=== PATIENT | male | born 1950 | race Caucasian/White ===

== ENCOUNTER 2017-11-22 11:14 | Emergency (ER) | payer MEDICARE ==
[~2017-11-22] VITALS: Ht 170.2 cm; Wt 89.8 kg
[~2017-11-22 11:14] MED LIST: ACET325 PO; ALBU3IS INH; ALBU90OI INH; AMLO10 PO; ASPI325 PO; ATOR10 PO; BENZ100A PO; CARV25 PO; CHLO25B PO; CYAN1000 PO; Colace100 MG PO; DEXT40GEL PO; EPIN.3I IM; FISH1000 PO; FURO40 PO; HYDACE10B PO; HYDACE5 PO; INS70/30PN; INSULANPEN; LEVEMIR FL100 UNIT/1 SC; LEVFLO500 PO; LIDO5TP TOP; METO25ER PO; Micro-K10 MEQ PO; Nitroglycerin0.4 MG SL; Novolog Fl100 UNIT/1 SC; OFLO.3OPSO OP; PREG100 PO; PYRI100 PO; REFRESH OPTIVE10 ML BOTHEYES; RXHYDACE PO; RXOXYACE PO; STRIVERDI RESPIM4 GM INH; THIA100 PO; Ventolin Soln3 ML INH
== END 2017-11-22 13:41 | disposition home or self-care (01) ==
LOC: ER 11:14
DX: T82.838A Hemorrhage due to vascular prosthetic devices, implants and grafts, initial encounter (principal); I10 Essential (primary) hypertension; Z88.2 Allergy status to sulfonamides; Z91.030 Bee allergy status; Z79.82 Long term (current) use of aspirin; Z79.2 Long term (current) use of antibiotics; Z79.899 Other long term (current) drug therapy; Z95.5 Presence of coronary angioplasty implant and graft; Z87.891 Personal history of nicotine dependence; Z98.890 Other specified postprocedural states; Z90.49 Acquired absence of other specified parts of digestive tract; Z79.4 Long term (current) use of insulin

== ENCOUNTER 2017-12-27 16:53 | Inpatient (IN) | payer OTHER, MEDICARE ==
[~2017-12-27] VITALS: Ht 170.2 cm; Wt 83.1 kg
[2017-12-27] MEDS ORDERED: BACL10 PO (17:06)
[2017-12-27] MEDS ORDERED: BUME2 PO (17:07)
[2017-12-27] MEDS ORDERED: Prozac20 MG PO (17:08)
[2017-12-27] MEDS ORDERED: HYDCOR2.5C TOP (17:10)
[2017-12-27] MEDS ORDERED: MIDO5 PO (17:14)
[2017-12-27] MEDS ORDERED: ONDA4ODT MM (17:15)
[2017-12-27] MEDS ORDERED: SENN187 PO (17:17)
[2017-12-27] MEDS ORDERED: SALS750 PO (17:17)
[2017-12-27 18:23] LABS: BASOPHILS ABSOLUTE AUTO 0.09 K/mm3 (0.00-0.23); BASOPHILS PERCENT AUTO 1 % (0-2); EOSINOPHILS PERCENT AUTO 2 % (0-6); Hematocrit 35.3 % (37.0-53.0); Hemoglobin 10.9 g/dL (13.5-17.5); IMMATURE GRAN ABSOLUTE AUTO 0.08 K/mm3 (0.00-0.10); IMMATURE GRAN PERCENT AUTO 1 % (0-1); LYMPHOCYTES ABSOLUTE AUTO 2.09 K/mm3 (0.84-5.20); LYMPHOCYTES PERCENT AUTO 21 % (21-46); MONOCYTES ABSOLUTE AUTO 0.92 K/mm3 (0.16-1.47); MONOCYTES PERCENT AUTO 9 % (4-13); Mean Corpuscular HGB 26.5 pg (26.0-34.0); Mean Corpuscular HGB Conc 30.9 g/dL (31.5-36.5); Mean Corpuscular Volume 86 fL (80-100); Mean Platelet Volume 9.8 fL (9.1-12.4); NEUTROPHILS ABSOLUTE AUTO 6.53 K/mm3 (1.96-9.15); NEUTROPHILS PERCENT AUTO 66 % (41-73); Platelet Count 401 K/mm3 (150-400); RDW Coefficient Variation 16.5 % (11.7-14.2); RDW Standard Deviation 51.2 fL (35.1-46.3); Red Blood Cell Count 4.11 M/mm3 (4.30-5.90); White Blood Cell Count 9.91 K/mm3 (4.00-11.30)
[2017-12-27 18:45] LABS: Albumin/Globulin Ratio 0.6 (0.8-1.8); Bilirubin, Total 0.6 mg/dL (0.1-1.0); Bun/Creatinine Ratio 4.8 (12.0-20.0); Creatinine, Blood 2.94 mg/dL (0.60-1.20); Globulin, Blood 4.9 g/dL (2.2-4.0); Potassium, Blood 3.2 mmol/L (3.5-5.5); Total Protein, Blood 7.9 g/dL (6.4-8.2); Troponin I 0.035 ng/mL (0.000-0.040)
[2017-12-27 18:49] LABS: Source, Urine Clean Catch
[2017-12-27 18:53] LABS: Bilirubin, Urine Neg (Neg); Blood, Urine 3+ (Neg); Glucose Qualitative, Urine 2+ (Neg); Ketones, Urine Neg (Neg); Leukocyte Esterase, Urine Neg (Neg); Nitrite, Urine Neg (Neg); Protein, Urine 3+ (Neg); Urobilinogen, Urine NORM (Normal)
[2017-12-27 18:56] LABS: Appearance, Urine Clear (Clear); Color, Urine Yellow (P-Yellow)
[2017-12-27 18:58] LABS: Bacteria Rare /hpf; Mucus Light ([, 0-Heavy]); Squamous Epithelial Cells Few /hpf (Few); White Blood Cells, Urine Not Seen /hpf (0-5)
[2017-12-27] MEDS ORDERED: Ocuflox5 ML OP (23:30)
[2017-12-28 02:46] LABS: Troponin I 0.031 ng/mL (0.000-0.040)
[2017-12-28 06:52] LABS: Hematocrit 33.5 % (37.0-53.0); Hemoglobin 10.4 g/dL (13.5-17.5); Mean Corpuscular Volume 87 fL (80-100); Mean Platelet Volume 9.6 fL (9.1-12.4); Platelet Count 364 K/mm3 (150-400); RDW Coefficient Variation 16.6 % (11.7-14.2); RDW Standard Deviation 52.2 fL (35.1-46.3); Red Blood Cell Count 3.85 M/mm3 (4.30-5.90)
[2017-12-28 07:01] LABS: Potassium, Blood 3.1 mmol/L (3.5-5.5)
[2017-12-28 07:09] LABS: Troponin I 0.028 ng/mL (0.000-0.040)
[2017-12-28 07:46] LABS: Albumin, Blood 2.7 g/dL (3.4-5.0); Albumin/Globulin Ratio 0.6 (0.8-1.8); Bilirubin, Total 0.4 mg/dL (0.1-1.0); Bun/Creatinine Ratio 5.6 (12.0-20.0); Calcium, Blood 8.8 mg/dL (8.5-10.1); Creatinine, Blood 4.11 mg/dL (0.60-1.20); Globulin, Blood 4.4 g/dL (2.2-4.0); Potassium, Blood 3.1 mmol/L (3.5-5.5); Total Protein, Blood 7.1 g/dL (6.4-8.2)
[2017-12-28 18:57] LABS: U Amphetamine Screen Not Detected; U Barbituate Screen Not Detected; U Benzodiazapine Screen Not Detected; U Buprenorphine Screen Not Detected; U Cannabinoids Screen DETECTED; U Cocaine Screen Not Detected; U Methadone Screen Not Detected; U Methamphetamine Screen Not Detected; U Opiates Screen DETECTED; U Oxycodone Screen Not Detected; U Phencyclidine Screen Not Detected; U Propoxyphene Screen Not Detected
[2017-12-29 04:54] LABS: BASOPHILS ABSOLUTE AUTO 0.08 K/mm3 (0.00-0.23); BASOPHILS PERCENT AUTO 1 % (0-2); EOSINOPHILS ABSOLUTE AUTO 0.24 K/mm3 (0.00-0.68); EOSINOPHILS PERCENT AUTO 3 % (0-6); Hematocrit 36.2 % (37.0-53.0); Hemoglobin 11.2 g/dL (13.5-17.5); IMMATURE GRAN ABSOLUTE AUTO 0.05 K/mm3 (0.00-0.10); IMMATURE GRAN PERCENT AUTO 1 % (0-1); LYMPHOCYTES ABSOLUTE AUTO 2.05 K/mm3 (0.84-5.20); LYMPHOCYTES PERCENT AUTO 26 % (21-46); MONOCYTES ABSOLUTE AUTO 1.02 K/mm3 (0.16-1.47); MONOCYTES PERCENT AUTO 13 % (4-13); Mean Corpuscular HGB 26.7 pg (26.0-34.0); Mean Corpuscular HGB Conc 30.9 g/dL (31.5-36.5); Mean Corpuscular Volume 86 fL (80-100); Mean Platelet Volume 10.1 fL (9.1-12.4); NEUTROPHILS PERCENT AUTO 56 % (41-73); Platelet Count 403 K/mm3 (150-400); RDW Coefficient Variation 16.7 % (11.7-14.2); RDW Standard Deviation 52.7 fL (35.1-46.3); White Blood Cell Count 7.84 K/mm3 (4.00-11.30)
[2017-12-29 05:15] LABS: Magnesium, Blood 2.1 mg/dL (1.6-2.4)
[2017-12-29 05:16] LABS: Albumin, Blood 2.9 g/dL (3.4-5.0); Anion Gap 10 mmol/L (6-16); Blood Urea Nitrogen 23 mg/dL (8-24); Bun/Creatinine Ratio 5.6 (12.0-20.0); CO2, Blood 32 mmol/L (21-32); Calcium, Blood 8.7 mg/dL (8.5-10.1); Chloride, Blood 97 mmol/L (98-108); Creatinine, Blood 4.09 mg/dL (0.60-1.20); Glomerular Filtration Rate 16 (60-); Glucose, Blood 132 mg/dL (70-99); Phosphorus, Blood 4.4 mg/dL (2.5-4.9); Sodium, Blood 139 mmol/L (136-145)
[2017-12-30 04:44] LABS: BASOPHILS ABSOLUTE AUTO 0.11 K/mm3 (0.00-0.23); BASOPHILS PERCENT AUTO 1 % (0-2); EOSINOPHILS ABSOLUTE AUTO 0.32 K/mm3 (0.00-0.68); EOSINOPHILS PERCENT AUTO 4 % (0-6); Hematocrit 37.1 % (37.0-53.0); Hemoglobin 11.3 g/dL (13.5-17.5); IMMATURE GRAN ABSOLUTE AUTO 0.05 K/mm3 (0.00-0.10); IMMATURE GRAN PERCENT AUTO 1 % (0-1); LYMPHOCYTES ABSOLUTE AUTO 1.62 K/mm3 (0.84-5.20); LYMPHOCYTES PERCENT AUTO 19 % (21-46); MONOCYTES ABSOLUTE AUTO 1.15 K/mm3 (0.16-1.47); MONOCYTES PERCENT AUTO 14 % (4-13); Mean Corpuscular HGB 26.7 pg (26.0-34.0); Mean Corpuscular HGB Conc 30.5 g/dL (31.5-36.5); Mean Corpuscular Volume 88 fL (80-100); Mean Platelet Volume 9.9 fL (9.1-12.4); NEUTROPHILS ABSOLUTE AUTO 5.25 K/mm3 (1.96-9.15); NEUTROPHILS PERCENT AUTO 62 % (41-73); Platelet Count 402 K/mm3 (150-400); RDW Coefficient Variation 16.3 % (11.7-14.2); RDW Standard Deviation 52.3 fL (35.1-46.3); Red Blood Cell Count 4.24 M/mm3 (4.30-5.90)
[2017-12-30 05:03] LABS: Anion Gap 10 mmol/L (6-16); Blood Urea Nitrogen 40 mg/dL (8-24); Bun/Creatinine Ratio 7.8 (12.0-20.0); CO2, Blood 31 mmol/L (21-32); Calcium, Blood 9.1 mg/dL (8.5-10.1); Chloride, Blood 98 mmol/L (98-108); Creatinine, Blood 5.15 mg/dL (0.60-1.20); Glomerular Filtration Rate 12 (60-); Glucose, Blood 120 mg/dL (70-99); Magnesium, Blood 2.1 mg/dL (1.6-2.4); Phosphorus, Blood 4.6 mg/dL (2.5-4.9); Sodium, Blood 139 mmol/L (136-145)
[2017-12-31 04:21] LABS: Hematocrit 35.1 % (37.0-53.0); Hemoglobin 10.8 g/dL (13.5-17.5)
[2017-12-31 04:39] LABS: Anion Gap 8 mmol/L (6-16); Blood Urea Nitrogen 35 mg/dL (8-24); Bun/Creatinine Ratio 7.5 (12.0-20.0); CO2, Blood 31 mmol/L (21-32); Chloride, Blood 101 mmol/L (98-108); Creatinine, Blood 4.68 mg/dL (0.60-1.20); Glomerular Filtration Rate 13 (60-); Glucose, Blood 95 mg/dL (70-99); Sodium, Blood 140 mmol/L (136-145)
[2017-12-31] MEDS ORDERED: INSDET100 SC (14:29)
[2017-12-31] MEDS ORDERED: PROM25 PO (14:34)
[2017-12-31] MEDS ORDERED: Kaon-Cl40 MEQ/15 PO (14:38)
[2017-12-31] MEDS ORDERED: CEPH500 PO (14:39)
== END 2017-12-31 15:24 | disposition home or self-care (01) | DRG 91 ==
LOC: ER 16:53 → MEDS 16:54 → ENPENDDIS 12-31 12:00 → MEDS 12-31 15:24
PROVIDERS: Emergency Medicine; Family Medicine; Internal Medicine; Internal Medicine Nephrology
PROC: 5A1D70Z Performance of Urinary Filtration, Intermittent, Less than 6 Hours Per Day (ICD-10-PCS; principal; 2017-12-28)
PROC: 5A1D70Z Performance of Urinary Filtration, Intermittent, Less than 6 Hours Per Day (ICD-10-PCS; 2017-12-30)
DX: G92 Toxic encephalopathy (principal); N18.6 End stage renal disease; I96 Gangrene, not elsewhere classified; I12.0 Hypertensive chronic kidney disease with stage 5 chronic kidney disease or end stage renal disease; G45.9 Transient cerebral ischemic attack, unspecified; E11.621 Type 2 diabetes mellitus with foot ulcer; L89.629 Pressure ulcer of left heel, unspecified stage; L89.610 Pressure ulcer of right heel, unstageable; E11.22 Type 2 diabetes mellitus with diabetic chronic kidney disease; R07.9 Chest pain, unspecified; E86.0 Dehydration; E87.6 Hypokalemia; T42.8X5A Adverse effect of antiparkinsonism drugs and other central muscle-tone depressants, initial encounter; H02.401 Unspecified ptosis of right eyelid; D63.1 Anemia in chronic kidney disease; Z99.2 Dependence on renal dialysis; Z87.891 Personal history of nicotine dependence; Z79.899 Other long term (current) drug therapy; Z79.4 Long term (current) use of insulin; Z88.2 Allergy status to sulfonamides; Z88.8 Allergy status to other drugs, medicaments and biological substances; Z91.030 Bee allergy status; Z95.5 Presence of coronary angioplasty implant and graft; Z90.49 Acquired absence of other specified parts of digestive tract; Z86.718 Personal history of other venous thrombosis and embolism; Z87.81 Personal history of (healed) traumatic fracture
CPT/HCPCS: 36415; 70450; 71046; 78452; 80053; 80069; 81001; 82140; 82550; 82947; 83735; 83880; 84132; 84443; 84484; 85014; 85018; 85025; 85027; 93005; 93010; 93017; 94640; 94660; 94762; 97162; 97165; 97530; 99285-25; A9500; G0257; G8978; G8979; G8980; G8987; G8988; J1250; J1650; J1815; J2405; J2550; J3010; J3480; J7030

== ENCOUNTER 2018-08-18 19:06 | Inpatient (IN) | payer MEDICARE ==
[~2018-08-18] VITALS: Ht 170.2 cm; Wt 88.0 kg
[~2018-08-18 19:06] MED LIST changes: +ATOR40TA PO; +BACL10 PO; +BUME2 PO; +CEPH500 PO; +CLOP75 PO; +ELIQUIS2.5 MG PO; +FISH OIL + D31 EACH PO; -FISH1000 PO; +FLUO10 PO; -HYDACE10B PO; +HYDCOR2.5C TOP; +INSDET100 SC; +Kaon-Cl40 MEQ/15 PO; +MIDO5 PO; +Norco 10-325 T1 EACH PO; +ONDA4ODT MM; +Ocuflox5 ML OP; +PREG75 PO; +PROM25 PO; +Polyethylene G500 G4; +Prozac20 MG PO; +Renal Caps Softg1 MG PO; +SALS750 PO; +SENN187 PO; +VANCOMYCIN1 GM/1001 IV
[2018-08-18 20:25] LABS: BASOPHILS ABSOLUTE AUTO 0.05 K/mm3 (0.00-0.23); BASOPHILS PERCENT AUTO 0 % (0-2); EOSINOPHILS ABSOLUTE AUTO 0.03 K/mm3 (0.00-0.68); EOSINOPHILS PERCENT AUTO 0 % (0-6); Hematocrit 26.2 % (37.0-53.0); Hemoglobin 8.5 g/dL (13.5-17.5); IMMATURE GRAN ABSOLUTE AUTO 0.07 K/mm3 (0.00-0.10); IMMATURE GRAN PERCENT AUTO 1 % (0-1); LYMPHOCYTES ABSOLUTE AUTO 0.74 K/mm3 (0.84-5.20); LYMPHOCYTES PERCENT AUTO 6 % (21-46); MONOCYTES ABSOLUTE AUTO 1.22 K/mm3 (0.16-1.47); MONOCYTES PERCENT AUTO 10 % (4-13); Mean Corpuscular HGB 29.7 pg (26.0-34.0); Mean Corpuscular HGB Conc 32.4 g/dL (31.5-36.5); Mean Corpuscular Volume 92 fL (80-100); Mean Platelet Volume 10.6 fL (9.1-12.4); NEUTROPHILS ABSOLUTE AUTO 9.94 K/mm3 (1.96-9.15); NEUTROPHILS PERCENT AUTO 83 % (41-73); Platelet Count 231 K/mm3 (150-400); RDW Coefficient Variation 14.9 % (11.7-14.2); RDW Standard Deviation 50.4 fL (35.1-46.3); Red Blood Cell Count 2.86 M/mm3 (4.30-5.90); White Blood Cell Count 12.05 K/mm3 (4.00-11.30)
[2018-08-18 20:42] LABS: Influenza A Negative (NEGATIVE); Influenza B Negative (NEGATIVE)
[2018-08-18 21:53] LABS: Albumin, Blood 2.7 g/dL (3.4-5.0); Albumin/Globulin Ratio 0.6 (0.8-1.8); Bilirubin, Total 0.5 mg/dL (0.1-1.0); Bun/Creatinine Ratio 8.2 (12.0-20.0); Calcium, Blood 7.6 mg/dL (8.5-10.1); Creatinine, Blood 7.2 mg/dL (0.60-1.20); Globulin, Blood 4.7 g/dL (2.2-4.0); Potassium, Blood 4.4 mmol/L (3.5-5.5); Total Protein, Blood 7.4 g/dL (6.4-8.2); Troponin I 0.062 ng/mL (0.000-0.040)
[2018-08-18 23:28] LABS: Magnesium, Blood 2.2 mg/dL (1.6-2.4)
[2018-08-19 00:07] LABS: International Normalized Ratio 1.19; Prothrombin Time Results 12.4 Sec (9.7-11.5)
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
[2018-08-19 03:40] LABS: Hematocrit 25.3 % (37.0-53.0); Hemoglobin 7.9 g/dL (13.5-17.5); Mean Corpuscular HGB 29.2 pg (26.0-34.0); Mean Corpuscular HGB Conc 31.2 g/dL (31.5-36.5); Mean Corpuscular Volume 93 fL (80-100); Mean Platelet Volume 10.4 fL (9.1-12.4); Platelet Count 195 K/mm3 (150-400); RDW Coefficient Variation 14.8 % (11.7-14.2); RDW Standard Deviation 50.7 fL (35.1-46.3); Red Blood Cell Count 2.71 M/mm3 (4.30-5.90); White Blood Cell Count 10.76 K/mm3 (4.00-11.30)
[2018-08-19 03:55] LABS: International Normalized Ratio 1.36
[2018-08-19 03:56] LABS: Bun/Creatinine Ratio 7.9 (12.0-20.0); Calcium, Blood 7.9 mg/dL (8.5-10.1); Creatinine, Blood 7.72 mg/dL (0.60-1.20); Magnesium, Blood 2.4 mg/dL (1.6-2.4); Potassium, Blood 4.2 mmol/L (3.5-5.5)
--- NOTE | 2018-08-19 05:33 | NUR ---
SHIFT SUMMARY. PT HAS COMPLAINED OF 8/10 CHEST PAIN SINCE ADMIT, PT HAS BEEN MEDICATED FOR PAIN PER EMAR WITH MINIMAL RESULTS, PT HAS BEEN DIAPHORETIC OFF AND ON SINCE ADMIT WELL. PT STILL COMPLAINS OF 8/10 PAIN WITH BREATHING, PT HAS BEEN USING O2 AT 2 L PRN FOR COMFORT. PT'S O2 STATS WILL OCC DROP DOWN TO THE LOW 80'S BUT WILL QUICKLY RECOVER. PT COMPLAINED OF NAUSEA AND WAS MEDICATED PER EMAR W/GOOD RESULTS. PT HAS BEEN NPO SINCE MIDNIGHT, CARDIOLOGY CONSULT WAS CALLED INTO ANSWERING SERVICE. PT'S TROPONINS ARE CRITICAL HIGH (SEE LABS.) AM EKG OBTAINED PER ORDERS. NO ACUTE EVENTS ON TELE, ST ELEVATION STILL NOTED. PT'S HOME CPAP IS IN THE ROOM, RT SET UP. IS AT THE BEDSIDE, CALL LIGHT IN REACH, BED IS LOCKED AND LOW WILL CONTINUE TO MONITOR UNTIL REPORT IS GIVEN TO ONCOMING RN.
[2018-08-19 08:59] LABS: Source, Urine Clean Catch
[2018-08-19 09:07] LABS: Blood, Urine 2+ (Neg); Glucose Qualitative, Urine Neg (Neg); Ketones, Urine 1+ (Neg); Leukocyte Esterase, Urine 1+ (Neg); Nitrite, Urine Neg (Neg); Protein, Urine 4+ (Neg); Urobilinogen, Urine 1+ (Normal)
[2018-08-19 09:16] LABS: Appearance, Urine Hazy (Clear); Color, Urine Yellow (P-Yellow)
[2018-08-19 09:17] LABS: Bilirubin, Urine 1+ (Neg)
[2018-08-19 09:19] LABS: Squamous Epithelial Cells Few /hpf (Few); White Blood Cells, Urine 0-2 /hpf (0-5)
[2018-08-19 09:20] LABS: Amorphous Light (0-Heavy); Bacteria Few /hpf; Transitional Epithelial Cells Few /hpf (0-Rare)
[2018-08-19 09:24] LABS: Waxy Cast Rare /lpf (0)
--- NOTE | 2018-08-19 11:19 | NUR ---
Spiritual care visit conducted. Patient was lying in bed and receiving blood when I entered patient's room. I introduced myself and patient invited me to sit down. Therapeutic alliance was easily established and patient shared openly about his struggles with guilt, his many trials in life and his family unit complications. I listened empathically, listened to confession, provided pastoral careers counsellor, quoted inspirational Bible verses and provided prayer. Patient responded well to all interventions and displayed evidence of restored maunel and catharsis. Patient expressed gatitiude for the visit.
[2018-08-19 14:00] LABS: PCO2 Arterial 61.5 mmHg (35-45); PO2 Arterial 51.1 mmHg (80-100)
[2018-08-19 14:04] LABS: pH Blood Arterial 7.26 (7.35-7.45)
--- NOTE | 2018-08-19 14:51 | NUR ---
TETRYL WRINGER OPERATOR CALLED TO PATIENT ROOM. PT IS DIAPHORETIC AND CONFUSED. BP IS ELEVATED AT 190 SYSTOLIC OVER 93. PT STATES "I CAN'T BREATHE" IS NOTIFIED. STAT EKG ATTEMPTED. UNSUCCESSFULL PT TOO DIAPHORETIC AT THIS TIME FOR PADS TO STICK. ATTEMPT TO CALL . DIANDRA JIM RN WILL CALL AND SEE IF SHE CAN REACH MD. TO ROOM. ORDER FOR STAT LABS STAT ABG AND STAT CHEST XRAY. PT ORIENTED TO SELF ONLY AT THIS TIME. IS NOTIFIED AND ORDER TO DO REPEAT DIALYSIS TO TRY AND PULL FLUID FROM LUNGS OFF FOR PATIENT COMFORT. CONDOM CATHETER PLACED AND THEN IV LASIX ADMIN PER ORDER. SPOUSE COMES TO ROOM AND IS EDUCATED ON PATIENTS CONDITION AND PLAN OF CARE. ASKS THAT PT GO TO ICU. HAS DIALYSIS DONE ON PATIENT FIRST AND THEN SHE WILL LET THIS RN KNOW IF PT IS TO GO TO ICU.
--- NOTE | 2018-08-19 15:41 | NUR ---
I responded to a call from patient's nurse for assistance with patient's . She had elevated emotions to the point that she was hindering patient care. When I entered the room patient was very excited and was speaking in loud tones to the patient and the staff. I asked patient's , Jolene to step out of the room and go for a little walk with me. Jolene proceeded to tell me about the patient's health history, about some of the family unit complications and about her frustrations with most every hospital the patient has been admitted to. Jolene stated that the patient is her whole world and that she can over reacted when it comes to advocating for his care. I listened empathically, provided anxiety containment, encouraged Jolene to be a part of the positive care in the patient's life, reinforced helpful attitudes and conducted a brief life review. oJlene responded well to the interventions and displayed evidence of a more peaceful demeanor.
--- NOTE | 2018-08-19 17:11 | NUR ---
DIALYSIS PT HAS A 2.5 HR DIALYSIS TX DONE, ABOUT AN HOUR LATER A RAPID RESPONSE WAS CALLEDON THE PT. HE WAS CYANOTIC, SOB AND DIAPHORATIC I WAS CALLED BACK TO DO A PUF ON THE PT. DR SARGENT WANTED ME TO GET MUCH FLUID OFF I COULD. BUT HE BEGAN TO CRAMP IN BOTH HIS LEGS AND HIS HANDS. I WAS UNABLE TO CONTINUE. I GOT 3449 ML OFF THE PT. HE WAS ABLE TO LOWER THE HOB AND REST COMFORTABLE. HE STILL HAS A BI PAP ON.
--- NOTE | 2018-08-19 18:01 | NUR ---
PT TRANSFERRED TO ICU 15. ON BIPAP AT 16/8. DENIES CHEST PAIN, BUT INCREASE IN ST ELEVATION NOTED ON STRIPS, 2 SMALL BLOCKS HIGH. DISCUSSED WITH COURT OFFICER AND CALLED DR SARGENT, ASKED IF EKG SHOULD BE DONE DUE TO CHANGES AFTER DIALYSIS. DR SARGENT STATES NO EKG AT THIS TIME UNLESS SIGNIFICANT CHANGES IN PT'S PRESENTATION. COURT OFFICER AWARE. FAMILY AT BEDSIDE AND INFORMED OF PLAN TO IMPROVE RESPIRATORY STATUS SO THAT ANGIO CAN BE DONE IN AM. PT REQUESTED MASK SWITCHED TO HIS HOME MASK BUT RT DOES NOT THINK THIS CAN BE DONE DUE TO TUBING MATCH UPS. LUNG SOUNDS WITH CRACKLES NOTED IN BASES. HEPARIN DRIP RUNNING, CONFIRMED WITH ROCIO MORENO. NO NEEDS AT THIS TIME
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
[2018-08-19 21:30] LABS: Adenovirus Not Detected (NOT DETECT); Bordetella pertussis Not Detected (NOT DETECT); Chlamydophila pneumoniae Not Detected (NOT DETECT); Coronavirus 229E Not Detected (NOT DETECT); Coronavirus HKU1 Not Detected (NOT DETECT); Coronavirus NL63 Not Detected (NOT DETECT); Coronavirus OC43 Not Detected (NOT DETECT); Human Metapneumovirus Not Detected (NOT DETECT); Human Rhinovirus/Enterovirus Not Detected (NOT DETECT); Influenza A Not Detected (NOT DETECT); Influenza A/2009-H1 Not Detected (NOT DETECT); Influenza A/H1 Not Detected (NOT DETECT); Influenza A/H3 Not Detected (NOT DETECT); Influenza B Not Detected (NOT DETECT); Mycoplasma pneumoniae Not Detected (NOT DETECT); Parainfluenza Virus 1 Not Detected (NOT DETECT); Parainfluenza Virus 2 Not Detected (NOT DETECT); Parainfluenza Virus 3 Not Detected (NOT DETECT); Parainfluenza Virus 4 Not Detected (NOT DETECT); Respiratory Syncytial Virus Not Detected (NOT DETECT)
[2018-08-20 03:45] LABS: BASOPHILS ABSOLUTE AUTO 0.01 K/mm3 (0.00-0.23); BASOPHILS PERCENT AUTO 0 % (0-2); EOSINOPHILS PERCENT AUTO 0 % (0-6); Hematocrit 32.3 % (37.0-53.0); Hemoglobin 10.5 g/dL (13.5-17.5); IMMATURE GRAN ABSOLUTE AUTO 0.05 K/mm3 (0.00-0.10); IMMATURE GRAN PERCENT AUTO 1 % (0-1); LYMPHOCYTES ABSOLUTE AUTO 0.55 K/mm3 (0.84-5.20); LYMPHOCYTES PERCENT AUTO 6 % (21-46); MONOCYTES ABSOLUTE AUTO 0.21 K/mm3 (0.16-1.47); MONOCYTES PERCENT AUTO 2 % (4-13); Mean Corpuscular HGB 28.5 pg (26.0-34.0); Mean Corpuscular HGB Conc 32.5 g/dL (31.5-36.5); Mean Platelet Volume 10.6 fL (9.1-12.4); NEUTROPHILS ABSOLUTE AUTO 7.97 K/mm3 (1.96-9.15); NEUTROPHILS PERCENT AUTO 91 % (41-73); Platelet Count 244 K/mm3 (150-400); RDW Coefficient Variation 15.1 % (11.7-14.2); Red Blood Cell Count 3.68 M/mm3 (4.30-5.90); White Blood Cell Count 8.79 K/mm3 (4.00-11.30)
[2018-08-20 03:56] LABS: Mean Corpuscular Volume 88 fL (80-100)
[2018-08-20 04:06] LABS: Alanine Aminotransfer (ALT/SGP 126 U/L (12-78); Albumin, Blood 3.3 g/dL (3.4-5.0); Albumin/Globulin Ratio 0.6 (0.8-1.8); Alk Phos 100 U/L (50-136); Anion Gap 16 mmol/L (6-16); Aspartate Aminotrans (AST/SGOT 84 U/L (12-37); Bilirubin, Total 0.7 mg/dL (0.1-1.0); Blood Urea Nitrogen 61 mg/dL (8-24); Bun/Creatinine Ratio 8.8 (12.0-20.0); CO2, Blood 23 mmol/L (21-32); Calcium, Blood 8.7 mg/dL (8.5-10.1); Chloride, Blood 92 mmol/L (98-108); Creatinine, Blood 6.91 mg/dL (0.60-1.20); Globulin, Blood 5.2 g/dL (2.2-4.0); Glomerular Filtration Rate 9 (60-); Glucose, Blood 226 mg/dL (70-99); Magnesium, Blood 2.5 mg/dL (1.6-2.4); Potassium, Blood 4.6 mmol/L (3.5-5.5); Sodium, Blood 131 mmol/L (136-145); Total Protein, Blood 8.5 g/dL (6.4-8.2)
[2018-08-20 04:39] LABS: Phosphorus, Blood 7.5 mg/dL (2.5-4.9)
[2018-08-20 04:53] LABS: PCO2 Arterial 39.3 mmHg (35-45); PO2 Arterial 104 mmHg (80-100); pH Blood Arterial 7.38 (7.35-7.45)
--- NOTE | 2018-08-20 05:53 | NUR ---
SHIFT SUMMARY NO ACUTE CHANGES THIS SHIFT. PT HAS REMAINED ON BIPAP THROUGHOUT THE NIGHT. BIPAP SETTINGS 12/6, FIO2 35%. PT HAS SLEPT OFF AND ON. PT HAS DENIED CHEST PAIN, NAUSEA, OR SOB AFTER MEDICATION FOR PAIN AT THE BEGINNING OF THE NIGHT. VITAL SIGNS REMAIN STABLE. HR REMAINS 60'S WITH ST ELEVATION UNCHANGED THROUGHOUT THE SHIFT. HEPARIN GTT INFUSING AT 17 UNITS/KG/HR PER PHARMACY DOSING. PT HAS REPOSITIONED SELF FOR COMFORT. DIALYSIS CATH REMAINS C/D/I. WILL CONTINUE TO MONITOR AND REPORT OFF TO ONCOMING RN.
--- NOTE | 2018-08-20 07:25 | NUR ---
PT AWAKE AND ALERT. PT TOLERATING BIPAP WELL. DENIES C/O CHEST PAIN OR PRESSURE. DENIES SOB WHILE ON BIPAP.
--- NOTE | 2018-08-20 08:37 | NUR ---
DR SARGENT AT BEDSIDE TO CONSENT FOR ANGIOGRAM. PT REMOVED FROM BIPAP TO TAKE PO MEDS AND PLACED ON 6L 02 VIA N/C. STATS DROPPED TO 88% WITHIN 5MIN W AN INCREASE IN RESP EFFORT. BIPAP REPLACED. PT C/O INDIGESTION IN UPPER THROAT, DECRIBES BURNING. C/O SHARP PAIN TO LOWER LUNG AREA W DEEP BREATH, POSSIBLE PLEURAL PAIN. HEART CENTER STAFF AT BEDSIDE TO TAKE PT FOR HIS ANGIOGRAM
--- NOTE | 2018-08-20 08:49 | NUR ---
Spiritual care visit conducted. I provided pre-surgery prayer for patient and spouse.
--- NOTE | 2018-08-20 10:45 | NUR ---
PT ARRIVED FROM 944 FROM DRIVABILITY TECHNICIAN. PT WILL NEED A CABG PER DR SARGENT. PT CAME BACK OFF OF HEP GTT AND WILL REMAIN OFF OF HEPARIN PER DR SARGENT. HEART CENTER STAFF MEMBER CAME AND PULLED SHEATH; HELD MANUAL PRESSURE X 20MIN; HEMOSTASIS ACHIEVED. DR SARGENT WORKING ON POSSIBLE TRANSFER TO [facility]
--- NOTE | 2018-08-20 15:03 | NUR ---
PT AWAITING FOR BED TO BECOME AVAILABLE AT [facility]. DR ELAINE AND DR MCKEON UPDATED. PT RECEIVING HD NOW. BIPAP REMOVED, PT SATS >90% ON 6L VIA N/C
--- NOTE | 2018-08-20 16:40 | NUR ---
PT HAS BEEN TOLERATING BREAKS OFF BIPAP FOR LONGER PERIODS OF TIME THE DAY HAS PROGRESSED. PT OFF BIPAP FOR 45MIN DURING HD.
--- NOTE | 2018-08-20 19:45 | NUR ---
ASSUMED CARE BEDSIDE REPORT RECIEVED. PT IS RESTING IN BED WITH BIPAP ON 04/03, FIO2 35%. PT IS AWAKE, ALERT, AND ORIENTED. PT COMPLAINS OF BACK PAIN AT THIS TIME. VITAL SIGNS STABLE, ST ELEVATION NOTED. PT WITH RIGHT GROIN ACCESS SITE, SITE STABLE. IV'S SALINE LOCKED. DIALYSIS CATH NOTED TO RIGHT UPPER CHEST WITH CAPS INTACT. FISTULA TO LFA. FAMILY PRESENT AT BEDSIDE. WILL CONTINUE TO MONITOR.
[2018-08-21 03:50] LABS: BASOPHILS ABSOLUTE AUTO 0.01 K/mm3 (0.00-0.23); BASOPHILS PERCENT AUTO 0 % (0-2); EOSINOPHILS PERCENT AUTO 0 % (0-6); Hematocrit 31.8 % (37.0-53.0); Hemoglobin 10.3 g/dL (13.5-17.5); IMMATURE GRAN ABSOLUTE AUTO 0.07 K/mm3 (0.00-0.10); IMMATURE GRAN PERCENT AUTO 1 % (0-1); LYMPHOCYTES ABSOLUTE AUTO 0.65 K/mm3 (0.84-5.20); LYMPHOCYTES PERCENT AUTO 6 % (21-46); MONOCYTES ABSOLUTE AUTO 1.18 K/mm3 (0.16-1.47); MONOCYTES PERCENT AUTO 10 % (4-13); Mean Corpuscular HGB 28.9 pg (26.0-34.0); Mean Corpuscular HGB Conc 32.4 g/dL (31.5-36.5); Mean Corpuscular Volume 89 fL (80-100); Mean Platelet Volume 10.7 fL (9.1-12.4); NEUTROPHILS ABSOLUTE AUTO 9.75 K/mm3 (1.96-9.15); NEUTROPHILS PERCENT AUTO 84 % (41-73); Platelet Count 303 K/mm3 (150-400); RDW Coefficient Variation 14.9 % (11.7-14.2); RDW Standard Deviation 49.1 fL (35.1-46.3); Red Blood Cell Count 3.56 M/mm3 (4.30-5.90); White Blood Cell Count 11.66 K/mm3 (4.00-11.30)
[2018-08-21 04:15] LABS: Albumin, Blood 3.3 g/dL (3.4-5.0); Anion Gap 13 mmol/L (6-16); Blood Urea Nitrogen 71 mg/dL (8-24); Bun/Creatinine Ratio 10.3 (12.0-20.0); CO2, Blood 26 mmol/L (21-32); Calcium, Blood 8.3 mg/dL (8.5-10.1); Chloride, Blood 95 mmol/L (98-108); Creatinine, Blood 6.92 mg/dL (0.60-1.20); Glomerular Filtration Rate 8 (60-); Glucose, Blood 230 mg/dL (70-99); Magnesium, Blood 2.6 mg/dL (1.6-2.4); Phosphorus, Blood 6.4 mg/dL (2.5-4.9); Potassium, Blood 4.3 mmol/L (3.5-5.5); Sodium, Blood 134 mmol/L (136-145)
--- NOTE | 2018-08-21 05:50 | NUR ---
SHIFT SUMMARY NO ACUTE CHANGES THIS SHIFT. PT HAS REMAINED ON BIPAP THROUGHOUT MOST OF THE NIGHT WITH BREIF BREAKS. BIPAP 10/5, FIO2 35%. VITAL SIGNS HAVE REMAINED STABLE. WHEN OFF BIPAP PT ON 10L O2 NC. ST ELEVATION HAS DECREASED THIS MORNING. PT HAS DENIED PAIN AFTER MED WITH FENTANYL AT BEGINNING OF THE SHIFT. PT HAS REMAINED ALERT AND ORIENTED. FAMILY MEMBER HAS REMAINED AT BEDSIDE THROUGHOUT THE NIGHT. PT HAS REPOSITIONED SELF IN BED INDEPENDENTLY. RIGHT GROIN SITE REMAINS STABLE. WILL CONTINUE TO MONITOR AND REPORT OFF TO ONCOMING RN.
--- NOTE | 2018-08-21 08:00 | NUR ---
ASSUMED CARE ASSUMED CARE OF PT AT 0700. REPORT RECEIVED FROM TIFFANIE MILLER. PT AWAKE, ALERT AND ORIENTED. PT DENIES ANY CHEST PAIN, NAUSEA OR DYSPNEA AT THIS TIME. VITAL SIGNS STABLE. PT ON SUPPLEMENTAL O2 VIA HUMIDIFIED HI FLOW CANNULA AT 10L/MIN. PT HAS BIPAP AVAILABLE PRN. LUNG SOUNDS CLEAR T/O. PT HAS DIALYSIS FISTULA TO L ARM WHICH IS NOT FUNCTIONING. DIALYSIS CATHETER IN PLACE TO RIGHT UPPER CHEST - PLAN FOR DIALYSIS THIS MORNING PER DR. ALBA. PT HAS PIV X2 SALINE LOCKED. PT IS AWAITING BED AT [facility] FOR CABG AT THIS TIME. FAMILY MEMBERS AT BEDSIDE - DISCUSSED PLAN OF CARE. WILL CONTINUE TO MONITOR PT CLOSELY.
--- NOTE | 2018-08-21 10:25 | NUR ---
DR. ROSETTA SARGENT ROUNDED ON PT. PLAN TO CONTINUE NITRO PASTE AND INCREASE COREG DOSE. DR. SARGENT STATES PT CAN BE PCU STATUS IF OK WITH OTHER PHYSICIANS ON CASE. NO ADDITIONAL ORDERS RECEIVED AT THIS TIME.
--- NOTE | 2018-08-21 13:14 | NUR ---
Spiritual care visit conducted. Patient was lying in bed and alert with family bedside. Patient and family are known to me from prior visits. Patient and family got me caught up on patient's current health condition. I provided companionship and gave pastoral assistant corporation counsel. I also provided prayer. Patient and family responded well and expressed gratitude for my care and time.
--- NOTE | 2018-08-21 16:26 | NUR ---
[facility] TRANSFER BED ASSIGNMENT RECEIVED FOR [facility]. PT TO GO TO [address] ROOM 1. [facility] NOTIFIED - ETA 30 MINUTES. PT AND FAMILY UPDATED AND AWARE.
--- NOTE | 2018-08-21 17:35 | NUR ---
TRANSFER TRANSFER REPORT CALLED TO [facility] TIFFANIE ESCOBAR. PT HANDED OFF TO [facility] EMT. PT LEFT AT 1735 WITH [facility] VIA STRETCHER. EMMIE HERE DURING TRANSFER. PT'S HOME CPAP AND BELONGINGS WITH PT.
== END 2018-08-21 17:35 | disposition short-term general hospital (02) | DRG 871 ==
LOC: ER 19:06 → PCU 23:36 → ICUW 08-19 00:02 → ER 08-19 00:02 → PCU 08-19 00:02 → ICUW 08-19 00:08 → PCU 08-19 17:30 → ICUW 08-19 17:30
PROVIDERS: Emergency Medicine; Internal Medicine; Internal Medicine Critical Care Medicine; Internal Medicine Nephrology; Nurse Practitioner Acute Care; ADMIT Internal Medicine
PROC: B2111ZZ Fluoroscopy of Multiple Coronary Arteries using Low Osmolar Contrast (ICD-10-PCS; 2018-08-18)
PROC: 5A09357 Assistance with Respiratory Ventilation, Less than 24 Consecutive Hours, Continuous Positive Airway Pressure (ICD-10-PCS; principal; 2018-08-19)
PROC: 30233N1 Transfusion of Nonautologous Red Blood Cells into Peripheral Vein, Percutaneous Approach (ICD-10-PCS; 2018-08-19)
DX: A41.9 Sepsis, unspecified organism (principal); I21.4 Non-ST elevation (NSTEMI) myocardial infarction; N18.6 End stage renal disease; J96.90 Respiratory failure, unspecified, unspecified whether with hypoxia or hypercapnia; J18.9 Pneumonia, unspecified organism; F11.20 Opioid dependence, uncomplicated; E87.1 Hypo-osmolality and hyponatremia; I50.30 Unspecified diastolic (congestive) heart failure; J98.11 Atelectasis; I13.2 Hypertensive heart and chronic kidney disease with heart failure and with stage 5 chronic kidney disease, or end stage renal disease; I25.10 Atherosclerotic heart disease of native coronary artery without angina pectoris; G47.33 Obstructive sleep apnea (adult) (pediatric); Z95.5 Presence of coronary angioplasty implant and graft; Z99.2 Dependence on renal dialysis; Z85.46 Personal history of malignant neoplasm of prostate; Z86.718 Personal history of other venous thrombosis and embolism; Z90.79 Acquired absence of other genital organ(s); Z90.01 Acquired absence of eye; Z79.4 Long term (current) use of insulin; Z79.02 Long term (current) use of antithrombotics/antiplatelets; Z87.891 Personal history of nicotine dependence; E11.22 Type 2 diabetes mellitus with diabetic chronic kidney disease; D63.8 Anemia in other chronic diseases classified elsewhere; E21.3 Hyperparathyroidism, unspecified; E11.40 Type 2 diabetes mellitus with diabetic neuropathy, unspecified; E86.9 Volume depletion, unspecified; I95.9 Hypotension, unspecified; J43.9 Emphysema, unspecified; E87.70 Fluid overload, unspecified; Z79.82 Long term (current) use of aspirin; G89.29 Other chronic pain
CPT/HCPCS: 36415; 36600; 71045; 71046; 71260; 80048; 80053; 80069; 81001; 82272; 82803; 82947; 83605; 83735; 83880; 84100; 84145; 84484; 85014; 85018; 85025; 85027; 85347; 85610; 85730; 86850; 86900; 86901; 86923; 87040; 87086; 87486; 87581; 87633; 87798; 87804; 93005; 93010; 93306; 93454; 94640; 94660; 94762; 96365; 99152; 99153; 99285-25; C1769; J0456; J0696; J0881; J1644; J1940; J1956; J2250; J2405; J2930; J3010; J7030; J7050; P9016; P9046; Q9967

== ENCOUNTER 2018-12-30 20:33 | Inpatient (IN) | payer MEDICARE, SELFPAY ==
[~2018-12-30] VITALS: Ht 180.3 cm; Wt 87.6 kg
[~2018-12-30 20:33] MED LIST changes: -ATOR40TA PO; -CARV25 PO; -CLOP75 PO; -FISH OIL + D31 EACH PO; -INSDET100 SC; -MIDO5 PO; -Norco 10-325 T1 EACH PO; -Novolog Fl100 UNIT/1 SC; -PREG75 PO
[2018-12-30 21:03] LABS: BASOPHILS ABSOLUTE AUTO 0.13 K/mm3 (0.00-0.23); BASOPHILS PERCENT AUTO 1 % (0-2); EOSINOPHILS ABSOLUTE AUTO 0.42 K/mm3 (0.00-0.68); EOSINOPHILS PERCENT AUTO 4 % (0-6); Hematocrit 32.3 % (37.0-53.0); Hemoglobin 9.7 g/dL (13.5-17.5); IMMATURE GRAN ABSOLUTE AUTO 0.04 K/mm3 (0.00-0.10); IMMATURE GRAN PERCENT AUTO 0 % (0-1); LYMPHOCYTES ABSOLUTE AUTO 3.02 K/mm3 (0.84-5.20); LYMPHOCYTES PERCENT AUTO 26 % (21-46); MONOCYTES PERCENT AUTO 8 % (4-13); Mean Corpuscular HGB 28.1 pg (26.0-34.0); Mean Corpuscular Volume 94 fL (80-100); Mean Platelet Volume 10.1 fL (9.1-12.4); NEUTROPHILS ABSOLUTE AUTO 7.23 K/mm3 (1.96-9.15); NEUTROPHILS PERCENT AUTO 61 % (41-73); Platelet Count 333 K/mm3 (150-400); RDW Coefficient Variation 15.3 % (11.7-14.2); Red Blood Cell Count 3.45 M/mm3 (4.30-5.90); White Blood Cell Count 11.84 K/mm3 (4.00-11.30)
[2018-12-30 21:19] LABS: PCO2 Arterial 55.1 mmHg (35-45); PO2 Arterial 81.1 mmHg (80-100); pH Blood Arterial 7.31 (7.35-7.45)
[2018-12-30 21:23] LABS: Albumin, Blood 3.1 g/dL (3.4-5.0); Albumin/Globulin Ratio 0.7 (0.8-1.8); Bilirubin, Total 0.5 mg/dL (0.1-1.0); Calcium, Blood 7.9 mg/dL (8.5-10.1); Globulin, Blood 4.7 g/dL (2.2-4.0); Magnesium, Blood 2.3 mg/dL (1.6-2.4); Phosphorus, Blood 5.5 mg/dL (2.5-4.9); Total Protein, Blood 7.8 g/dL (6.4-8.2); Troponin I 0.035 ng/mL (0.000-0.040)
[2018-12-30] MEDS ORDERED: ALBU90OI61 INH (22:30)
[2018-12-30] MEDS ORDERED: AMLO5 PO (22:30)
[2018-12-30] MEDS ORDERED: Aspirin EC81 MG PO (22:30)
[2018-12-30] MEDS ORDERED: ATOR40TA PO (22:31)
[2018-12-30] MEDS ORDERED: DOCU100 PO (22:32)
[2018-12-30] MEDS ORDERED: CLOP75 PO (22:32)
[2018-12-30] MEDS ORDERED: Carvedilol12.5 MG PO (22:32)
[2018-12-30] MEDS ORDERED: Fish Oil 10001000 MG PO (22:33)
[2018-12-30] MEDS ORDERED: Novolog100 UNIT/2 SC (22:34)
[2018-12-30] MEDS ORDERED: INSDET100 SC (22:34)
[2018-12-30] MEDS ORDERED: Norco 10-325 T1 EACH PO (22:34)
[2018-12-30] MEDS ORDERED: Midodrine HCl2.5 MG PO (22:37)
[2018-12-30] MEDS ORDERED: PANT40 PO (22:38)
[2018-12-30] MEDS ORDERED: PREG75 PO (22:38)
[2018-12-30] MEDS ORDERED: STIOLTO RESPIMAT4 GM INH (22:38)
[2018-12-30] MEDS ORDERED: GAVILAX17 GM PO (22:39)
[2018-12-30] MEDS ORDERED: PROC5 PO (22:40)
[2018-12-30] MEDS ORDERED: SEVE800 PO (22:40)
[2018-12-30] MEDS ORDERED: SERT100 PO (22:40)
[2018-12-30] MEDS ORDERED: RENAL VITAMIN0.8 MG PO (22:41)
[2018-12-30 23:21] LABS: PCO2 Arterial 48.6 mmHg (35-45); PO2 Arterial 76.1 mmHg (80-100); pH Blood Arterial 7.38 (7.35-7.45)
--- NOTE | 2018-12-31 00:15 | NUR ---
DIALYSIS PATIENTS BLOOD PRESSURE DROPPED BEFORE STARTING DIALYSIS. DOCTOR ORDERED FOR A 500CC BOLUS. AFTERWARD DOCTOR ANJALI CAME IN AND ORDERED AT LEAST A 2L UFG.
--- NOTE | 2018-12-31 00:21 | NUR ---
PT DNR: VERIFIED WITH FAMILY ONCE COPY OF POLST ON CHART. PT IS DNR-SEE POLST.
--- NOTE | 2018-12-31 01:53 | NUR ---
DR. ALBA NOTIFIED: HEAVY MEDIA OPERATOR TO BEDSIDE APPROX 2250. DR. ALBA TO BEDISE APPRX 2330. NO NEW ORDERS GIVEN THEN. PT WITH HYPOTENSION SINCE ARRIVAL WITH FLUID BOLUS GIVEN AFTER CALLING HOSPITALIST. PT CURRENTLY HYPOTENSIVE RECIEVING DIALYSIS. DR. ALBA CALLED AT APPRX 0145. NEW ORDERS FOR HEAVY MEDIA OPERATOR TO BOLUS NS 500 mL NOW AND MAY BOLUS A SECOND BOLUS OF 500mL IF NEED. BEGIN NS AT 100ml/hr ONCE DIALYSIS DONE. BEGIN LEVOPHED USING DIALYSIS CATHETER. HAVE HEAVY MEDIA OPERATOR DRAW BLOOD CULTURES THROUGH DIALYSIS CATH ONCE DIALISIS COMPLETE. WILL VERIFY IF DIALYSIS CATHETER IS COMPATIBLE. WILL CONTINUE TO MONITOR.
--- NOTE | 2018-12-31 02:15 | NUR ---
DIALYSIS [place] ORDERED ANOTHER 500CC BOLUS AT 0145 FOR LOW BLOOD PRESSURE. PT GIVEN ALBUMIN AND BOLUS ALBUMIN WAS BEING ADMINISTERED WHEN BOLUS WAS ORDERED
[2018-12-31 02:46] LABS: BASOPHILS ABSOLUTE AUTO 0.07 K/mm3 (0.00-0.23); BASOPHILS PERCENT AUTO 1 % (0-2); EOSINOPHILS ABSOLUTE AUTO 0.12 K/mm3 (0.00-0.68); EOSINOPHILS PERCENT AUTO 2 % (0-6); Hematocrit 25.1 % (37.0-53.0); Hemoglobin 7.8 g/dL (13.5-17.5); IMMATURE GRAN ABSOLUTE AUTO 0.02 K/mm3 (0.00-0.10); IMMATURE GRAN PERCENT AUTO 0 % (0-1); LYMPHOCYTES ABSOLUTE AUTO 1.19 K/mm3 (0.84-5.20); LYMPHOCYTES PERCENT AUTO 16 % (21-46); MONOCYTES ABSOLUTE AUTO 0.96 K/mm3 (0.16-1.47); MONOCYTES PERCENT AUTO 13 % (4-13); Mean Corpuscular HGB 27.7 pg (26.0-34.0); Mean Corpuscular HGB Conc 31.1 g/dL (31.5-36.5); Mean Platelet Volume 9.9 fL (9.1-12.4); NEUTROPHILS ABSOLUTE AUTO 5.06 K/mm3 (1.96-9.15); NEUTROPHILS PERCENT AUTO 68 % (41-73); Platelet Count 213 K/mm3 (150-400); RDW Coefficient Variation 15.1 % (11.7-14.2); RDW Standard Deviation 48.1 fL (35.1-46.3); Red Blood Cell Count 2.82 M/mm3 (4.30-5.90); White Blood Cell Count 7.42 K/mm3 (4.00-11.30)
[2018-12-31 02:51] LABS: Mean Corpuscular Volume 89 fL (80-100)
[2018-12-31 03:08] LABS: Alanine Aminotransfer (ALT/SGP 20 U/L (12-78); Albumin, Blood 3.9 g/dL (3.4-5.0); Albumin/Globulin Ratio 1.1 (0.8-1.8); Alk Phos 114 U/L (50-136); Anion Gap 6 mmol/L (6-16); Aspartate Aminotrans (AST/SGOT 12 U/L (12-37); Bilirubin, Total 0.5 mg/dL (0.1-1.0); Blood Urea Nitrogen 36 mg/dL (8-24); Bun/Creatinine Ratio 7.6 (12.0-20.0); CO2, Blood 33 mmol/L (21-32); Calcium, Blood 7.9 mg/dL (8.5-10.1); Chloride, Blood 98 mmol/L (98-108); Creatinine, Blood 4.74 mg/dL (0.60-1.20); Globulin, Blood 3.4 g/dL (2.2-4.0); Glomerular Filtration Rate 13 (60-); Glucose, Blood 94 mg/dL (70-99); Magnesium, Blood 2.1 mg/dL (1.6-2.4); Phosphorus, Blood 3.1 mg/dL (2.5-4.9); Potassium, Blood 3.7 mmol/L (3.5-5.5); Sodium, Blood 137 mmol/L (136-145); Total Protein, Blood 7.3 g/dL (6.4-8.2)
--- NOTE | 2018-12-31 04:54 | NUR ---
HOSPITALIST NOTIFIED: RE: ELEVATED TROPONIN. NEW ORDERS TO REPEAT EKG THIS AM AND TO REPEAT TROPONIN IN SIX HOURS. TROPONIN ORDER AT 0900 NOTED.
--- NOTE | 2018-12-31 05:15 | NUR ---
0500 PT AWAKENED THROUGH SEDATION. MOTIONING WITH HAND TO WRITE. PT GIVEN PENCIL AND PAPER WROTE OUT SPRAY AND POINTED AT THROAT. PT NODDED TO PAIN FROM ET TUBE. [facility] AT [facility]. PROPOFOL OFF AT 0508. PT CURRENTLY ON SPONTANEOUS VENT AND OFF SEDATION-TOLERATING WELL.
--- NOTE | 2018-12-31 07:12 | NUR ---
DR. HERNANDEZ CAME TO BEDSIDE APPRX 0600 WITH VERBAL TO CONITNUE INTUBATION/SEDATION UNTIL PT ABLE TO RECIEVE DIALYSIS AND MORE FLUID TAKEN OFF. YESY RT TO BEDSIDE AND PLACE PT BACK ON A/C. REPORT TO RYLEY MORENO. ALL QUESTIONS ANSWERED. FAMILY TO BEDSIDE AND UPDATED. FAMILY CURRENTLY AT BEDSIDE.
--- NOTE | 2018-12-31 07:17 | NUR ---
ASSUMED CARE PATIENT IS INTUBATED, RESTRAINED. 8.0 ETT 26 SUSIE. PATIENT IS DNR, BUT WAS INTUBATED IN THE FIELD.
--- NOTE | 2018-12-31 08:29 | NUR ---
MD VISIT DR. ALBA IN ORDERS RECEIVED AND IMPLEMENTED
[2018-12-31 08:39] LABS: Source, Urine Catheter
[2018-12-31 08:49] LABS: Appearance, Urine Hazy (Clear); Bilirubin, Urine Neg (Neg); Blood, Urine 4+ (Neg); Color, Urine Yellow (P-Yellow); Glucose Qualitative, Urine 1+ (Neg); Ketones, Urine 1+ (Neg); Leukocyte Esterase, Urine 2+ (Neg); Nitrite, Urine Neg (Neg); Protein, Urine 4+ (Neg); Specific Gravity, Urine 1.015 (1.003-1.022); Urobilinogen, Urine NORM (Normal)
[2018-12-31 08:53] LABS: Amorphous Mod ({null, 0-Heavy}); Bacteria Few /hpf; Red Blood Cells, Urine 25-50 /hpf (0-2); Squamous Epithelial Cells Few /hpf (Few)
[2018-12-31 08:54] LABS: Mucus Light ({null, 0-Heavy})
[2018-12-31 09:05] LABS: U Amphetamine Screen Not Detected; U Barbituate Screen Not Detected; U Benzodiazapine Screen Not Detected; U Buprenorphine Screen Not Detected; U Cannabinoids Screen Not Detected; U Cocaine Screen Not Detected; U Methadone Screen Not Detected; U Methamphetamine Screen Not Detected; U Opiates Screen Not Detected; U Oxycodone Screen Not Detected; U Phencyclidine Screen Not Detected; U Propoxyphene Screen Not Detected
--- NOTE | 2018-12-31 12:20 | NUR ---
MD VISIT DR. HERNANDEZ IN
[2018-12-31] MEDS ORDERED: LOSA50 PO (12:52)
[2018-12-31] MEDS ORDERED: NARCAN4 MG (12:53)
--- NOTE | 2018-12-31 13:17 | NUR ---
CALLED DR. ALBA WITH UPDATE. ORDERS FOR DIALYSIS AND SUPPORT BP WITH ALBUMIN AND BLOOD
--- NOTE | 2018-12-31 15:49 | NUR ---
TIFFANIE HEARD IN FOR DIALYSIS.
--- NOTE | 2018-12-31 17:28 | NUR ---
AT BEDSIDE. PATIENT C/O LEG CRAMPS. FENTANYL 25 MCG IV GIVEN AND NORCO GIVEN PT.
[2018-12-31] MEDS ORDERED: TUMS500 MG (19:28)
--- NOTE | 2019-01-01 00:40 | NUR ---
START OF SHIFT: REPORT FROM RYLEY MORENO. FAMILY AT BEDSIDE. VSS. PROPOFOL INFUSING AT 45mcg/kg/min with pt appearing comfortable. LS MORE CLEAR THAN PRIOR NOC SHIFT WITH PT REMAINING ON VENT. SETTINGS: A/C 16, Vt 400, PEEP 5.0, FiO2 30%. FAMILY GIVEN OPPORTUNITY TO ASK QUESTIONS AND WERE ANSWERED. PT'S PROVIDED INFORMATION FOR MED REQ UPDATE. PT AWAKENED ENOUGH DURING TIME THAT PROPFOL PAUSED FOR TUBING CHANGE AND WAS ORIENTED TO PERSON, FAMILY, AND PLACE. PT FOLLOWED COMMANDS. PT AT THAT TIME DENIED PAIN AND NODDED TO WANTING TO BE REPOSITIONED. PT AFTER BEING MOVED NODDED TO HAVING THROAT PAIN AND WAS MEDICATED WITH FENTANYL. PT HAS SINCE, APPEARS COMFORTABLE WITH VSS. WILL CONTINUE TO MONITOR.
[2019-01-01 03:47] LABS: Hematocrit 29.4 % (37.0-53.0); Hemoglobin 9.4 g/dL (13.5-17.5)
[2019-01-01 04:04] LABS: Albumin, Blood 3.6 g/dL (3.4-5.0); Anion Gap 7 mmol/L (6-16); Blood Urea Nitrogen 29 mg/dL (8-24); Bun/Creatinine Ratio 6.4 (12.0-20.0); CO2, Blood 31 mmol/L (21-32); Calcium, Blood 8.3 mg/dL (8.5-10.1); Chloride, Blood 98 mmol/L (98-108); Creatinine, Blood 4.53 mg/dL (0.60-1.20); Glomerular Filtration Rate 14 (60-); Glucose, Blood 103 mg/dL (70-99); Magnesium, Blood 2.1 mg/dL (1.6-2.4); Phosphorus, Blood 4.1 mg/dL (2.5-4.9); Potassium, Blood 3.7 mmol/L (3.5-5.5); Sodium, Blood 136 mmol/L (136-145)
--- NOTE | 2019-01-01 07:12 | NUR ---
PT TOLERATED WEAN WELL. VSS. PT'S DAUGHTER REMAINED IN ROOM T/O NOC. PT MEDICATED FOR PAIN WHEN PT NODDED TO QUESTIONS REGARDING. PT WITH NODDING UNDERSTANDING OF POSSIBLE EXTUBATION TODAY.
--- NOTE | 2019-01-01 07:13 | NUR ---
ASSUMED CARE PT CONTINUES INTUBATED, RESTRAINED. SEDATED ON PROPOFOL 25 MCG/KG/MIN
--- NOTE | 2019-01-01 08:38 | NUR ---
MD VISIT DR. WOLF IN
--- NOTE | 2019-01-01 08:55 | NUR ---
RT PLACED ON SPONTANEOUS
--- NOTE | 2019-01-01 08:55 | NUR ---
MD VISIT DR. HERNANDEZ IN
--- NOTE | 2019-01-01 10:26 | NUR ---
FENTANYL 25 MCG IV GIVEN FOR PAIN IN THROAT FROM ETT. ORDER TO EXTUBATE. WAITING FOR RT
--- NOTE | 2019-01-01 10:40 | NUR ---
PATIENT EXTUBATED AT 1036 WITHOUT INCIDENT. 3L NC. ECHO BEING DONE NOW
--- NOTE | 2019-01-01 11:14 | NUR ---
PARTIAL ECHOCARDIOGRAM COMPLETED
--- NOTE | 2019-01-01 19:12 | NUR ---
PATIENT HAD BM ON BEDPAN. WANTED TO LAY ON SIDE. BIOX DROPPED WHEN FLAT. 2L NC PLACED. ORDERS FOR CPAP AT NIGHT.
--- NOTE | 2019-01-01 19:25 | NUR ---
REPORT GIVEN TO TIFFANIE ELMORE
--- NOTE | 2019-01-01 19:30 | NUR ---
[place] of Care: Patient alert and oriented x4, sitting upright in bed watching tv with family at bedside. VSS, denies dyspnea/SOB, O2-96% on 2L/NC. C/O back pain (chronic), plan to give prn [place], will monitor for effect. Peripheral IV to rt AC found nearly all the way out of patient with bandage lifted, this IV D/C'd at this time. Peripheral IV to rt upper arm patent and intact. Dialysis catheter to rt upper chest, bandage C/D/I, site appears wnl. Dialysis fistula to lt arm, positive for bruit/thrill. Call light in reach, makes needs known. Will continue to monitor for pain, comfort, safety.
[2019-01-02 03:32] LABS: Hematocrit 33.9 % (37.0-53.0); Hemoglobin 10.7 g/dL (13.5-17.5)
[2019-01-02 03:47] LABS: Albumin, Blood 3.9 g/dL (3.4-5.0); Anion Gap 8 mmol/L (6-16); Blood Urea Nitrogen 36 mg/dL (8-24); CO2, Blood 31 mmol/L (21-32); Calcium, Blood 8.7 mg/dL (8.5-10.1); Chloride, Blood 95 mmol/L (98-108); Creatinine, Blood 5.15 mg/dL (0.60-1.20); Glomerular Filtration Rate 12 (60-); Glucose, Blood 150 mg/dL (70-99); Magnesium, Blood 2.4 mg/dL (1.6-2.4); Phosphorus, Blood 5.1 mg/dL (2.5-4.9); Potassium, Blood 4.2 mmol/L (3.5-5.5); Sodium, Blood 134 mmol/L (136-145)
--- NOTE | 2019-01-02 06:19 | NUR ---
Shift Summary: Patient slept well throughout shift. Continues to deny dyspnea/SOB. On home CPAP when sleeping, and RA when awake. VSS, O@-94-98%. C/o back pain effectively managed with prn [place] x2 and prn fentanyl x1. Peripheral IV to rt upper arm remains patent and intact. Call light in reach, makes needs known. Will continue to monitor until report to day shift RN.
--- NOTE | 2019-01-02 07:11 | NUR ---
ASSUMED CARE REPORT FROM TIFFANIE ELMORE. PATIENT SLEEPING
--- NOTE | 2019-01-02 08:20 | NUR ---
MD VISIT DR. ALBA IN
--- NOTE | 2019-01-02 08:21 | NUR ---
MD VISIT DR. WOLF IN. ORDER FOR PT/OT
--- NOTE | 2019-01-02 09:03 | NUR ---
MD VISIT DR. HERNANDEZ IN
--- NOTE | 2019-01-02 09:39 | NUR ---
PATIENT IS NOW MED NO TELE. TO SHOWER WITH FITNESS COACH.
--- NOTE | 2019-01-02 20:43 | NUR ---
ASSUMED CARE OF PT, REPORT RCV'D FROM TIFFANIE HEDRICK. PT ALERT AND ORIENTED SITTING UP IN BED. PT REPORTS 8/10 PAIN RELATED TO PREVIOUS SURGERIES. PT UP TO TOILET WITH 1-PERSON ASSIST AND WALKER. PT TOLERATED WELL. PT REPORTS USING WHEELCHAIR AT HOME D/T NEUROPATHY. PT HYPERTENSIVE WITH SPB>200, TREATED WITH HYDRALAZINE WITH GOOD RESULT. PT REPORTS N/T BLE. TOES CYANOTIC BILATERALLY (PT STATES NORM), PEDAL PULSE UNABLE TO BE FOUND WITH DOPPLER, THIS IS UNCHANGED FROM ADMISSION. TIBIAL PULSE WEAK BILATERALLY. SEE FULL SHIFT ASSESSMENT.
[2019-01-03 03:30] LABS: BASOPHILS ABSOLUTE AUTO 0.09 K/mm3 (0.00-0.23); BASOPHILS PERCENT AUTO 1 % (0-2); EOSINOPHILS ABSOLUTE AUTO 0.57 K/mm3 (0.00-0.68); EOSINOPHILS PERCENT AUTO 7 % (0-6); Hematocrit 38.5 % (37.0-53.0); Hemoglobin 11.9 g/dL (13.5-17.5); IMMATURE GRAN ABSOLUTE AUTO 0.02 K/mm3 (0.00-0.10); IMMATURE GRAN PERCENT AUTO 0 % (0-1); LYMPHOCYTES ABSOLUTE AUTO 1.49 K/mm3 (0.84-5.20); LYMPHOCYTES PERCENT AUTO 17 % (21-46); MONOCYTES ABSOLUTE AUTO 0.91 K/mm3 (0.16-1.47); MONOCYTES PERCENT AUTO 10 % (4-13); Mean Corpuscular HGB 27.2 pg (26.0-34.0); Mean Corpuscular HGB Conc 30.9 g/dL (31.5-36.5); Mean Corpuscular Volume 88 fL (80-100); Mean Platelet Volume 10.2 fL (9.1-12.4); NEUTROPHILS ABSOLUTE AUTO 5.63 K/mm3 (1.96-9.15); NEUTROPHILS PERCENT AUTO 65 % (41-73); Platelet Count 268 K/mm3 (150-400); RDW Coefficient Variation 16.1 % (11.7-14.2); RDW Standard Deviation 51.5 fL (35.1-46.3); Red Blood Cell Count 4.37 M/mm3 (4.30-5.90); White Blood Cell Count 8.71 K/mm3 (4.00-11.30)
[2019-01-03 03:51] LABS: Albumin, Blood 3.9 g/dL (3.4-5.0); Anion Gap 11 mmol/L (6-16); Blood Urea Nitrogen 58 mg/dL (8-24); Bun/Creatinine Ratio 8.1 (12.0-20.0); CO2, Blood 29 mmol/L (21-32); Calcium, Blood 8.8 mg/dL (8.5-10.1); Chloride, Blood 95 mmol/L (98-108); Creatinine, Blood 7.19 mg/dL (0.60-1.20); Glomerular Filtration Rate 8 (60-); Glucose, Blood 111 mg/dL (70-99); Magnesium, Blood 2.5 mg/dL (1.6-2.4); Potassium, Blood 4.2 mmol/L (3.5-5.5); Sodium, Blood 135 mmol/L (136-145)
--- NOTE | 2019-01-03 06:09 | NUR ---
SHIFT SUMMARY NO ACUTE CHANGES OVERNIGHT. PT ABLE TO AMBULATE TO TOILET WITH 1-PERSON ASSIST AND WALKER. PT WAS WEAK AND STATES THAT IT "FEELS LIKE WALKING ON [employer]" D/T HIS BLE NEUROPATHY. PT HAS WEAK GAIT AND WAS TIRED FROM AMBULATION BUT TOLERATED WELL. 2 LARGE WATERY BM THIS SHIFT. PT HAS CONTINUED TO BE MEDICATED REGULARLY FOR HIS CHRONIC PAIN. PT ANTICIPATING BEING RELEASED THIS AFTERNOON FOLLOWING DIALYSIS. WILL REPORT TO DAYSHIFT NURSE.
--- NOTE | 2019-01-03 07:22 | NUR ---
ASSUMED CARE: PT RESTING QUIETLY AT THIS TIME. NO ACUTE NEEDS OR CONCERNS NOTED
--- NOTE | 2019-01-03 09:18 | NUR ---
PT TAKEN TO DIALYSIS ROOM VIA WHEEL CHAIR BY TIFFANIE
--- NOTE | 2019-01-03 14:20 | NUR ---
PT'S IV DC'D WNL, PAPERS FAXED TO [facility] [employer]. DISCUSSED DC INSTRUCTIONS WITH PT. DENIED FURTHER QUESTIONS OR CONCERNS. PT ESCORTED OUT VIA WHEEL CHAIR BY HOSPITAL STAFF
== END 2019-01-03 14:09 | disposition home health service (06) | DRG 871 ==
LOC: ER 20:33 → ICUE 21:51 → ICUW 21:51 → ICUE 22:24
PROVIDERS: Emergency Medicine; Internal Medicine; Internal Medicine Nephrology; Nurse Practitioner Acute Care; ADMIT Hospitalist
PROC: 5A1945Z Respiratory Ventilation, 24-96 Consecutive Hours (ICD-10-PCS; principal; 2018-12-30)
PROC: 5A1D70Z Performance of Urinary Filtration, Intermittent, Less than 6 Hours Per Day (ICD-10-PCS; 2018-12-31)
PROC: 30233N1 Transfusion of Nonautologous Red Blood Cells into Peripheral Vein, Percutaneous Approach (ICD-10-PCS; 2018-12-31)
PROC: 5A1D70Z Performance of Urinary Filtration, Intermittent, Less than 6 Hours Per Day (ICD-10-PCS; 2019-01-02)
DX: A41.9 Sepsis, unspecified organism (principal); J69.0 Pneumonitis due to inhalation of food and vomit; J96.01 Acute respiratory failure with hypoxia; N18.6 End stage renal disease; I13.2 Hypertensive heart and chronic kidney disease with heart failure and with stage 5 chronic kidney disease, or end stage renal disease; I50.32 Chronic diastolic (congestive) heart failure; J81.1 Chronic pulmonary edema; E11.22 Type 2 diabetes mellitus with diabetic chronic kidney disease; Z99.2 Dependence on renal dialysis; Z79.4 Long term (current) use of insulin; Z66 Do not resuscitate; I34.0 Nonrheumatic mitral (valve) insufficiency; I25.10 Atherosclerotic heart disease of native coronary artery without angina pectoris; G47.33 Obstructive sleep apnea (adult) (pediatric); E66.01 Morbid (severe) obesity due to excess calories; Z95.5 Presence of coronary angioplasty implant and graft; G89.4 Chronic pain syndrome; D63.8 Anemia in other chronic diseases classified elsewhere; Z86.718 Personal history of other venous thrombosis and embolism; I95.89 Other hypotension; R65.20 Severe sepsis without septic shock
CPT/HCPCS: 31720; 36415; 36430; 36600; 51702; 71045; 80053; 80069; 80202; 81001; 82803; 82947; 83605; 83735; 83880; 84100; 84145; 84484; 85014; 85018; 85025; 86850; 86870; 86900; 86901; 86902; 86905; 86922; 87040; 87070; 87086; 87205; 93005; 93010; 93308; 93321; 94002; 94003; 94640; 94660; 94762; 97161; 99291-25; 99292; A9270-GY; C9113; J0360; J0881; J1644; J2250; J2543; J2704; J3010; J3370; J7030; P9016; P9046

== ENCOUNTER 2019-02-25 12:57 | Emergency (ER) | payer OTHER, MEDICARE ==
[~2019-02-25] VITALS: Ht 170.2 cm; Wt 79.4 kg
[~2019-02-25 12:57] MED LIST changes: +ALBU90OI61 INH; +AMLO5 PO; +ATOR40TA PO; +Aspirin EC81 MG PO; +CLOP75 PO; +Carvedilol12.5 MG PO; +DOCU100 PO; +Fish Oil 10001000 MG PO; +GAVILAX17 GM PO; +INSDET100 SC; +LOSA50 PO; +Midodrine HCl2.5 MG PO; +NARCAN4 MG; +Norco 10-325 T1 EACH PO; +Novolog100 UNIT/2 SC; +PANT40 PO; +PREG75 PO; +PROC5 PO; +RENAL VITAMIN0.8 MG PO; +SERT100 PO; +SEVE800 PO; +STIOLTO RESPIMAT4 GM INH; +TUMS500 MG
[2019-02-25] MEDS ORDERED: LOSA50 (14:25)
[2019-02-25] MEDS ORDERED: Renal Caps Softg1 MG PO (14:26)
[2019-02-25] MEDS ORDERED: PROC5 PO (14:26)
[2019-02-25 14:34] LABS: BASOPHILS ABSOLUTE AUTO 0.08 K/mm3 (0.00-0.23); BASOPHILS PERCENT AUTO 1 % (0-2); EOSINOPHILS ABSOLUTE AUTO 0.42 K/mm3 (0.00-0.68); EOSINOPHILS PERCENT AUTO 5 % (0-6); Hematocrit 32.2 % (37.0-53.0); Hemoglobin 10.1 g/dL (13.5-17.5); IMMATURE GRAN ABSOLUTE AUTO 0.03 K/mm3 (0.00-0.10); IMMATURE GRAN PERCENT AUTO 0 % (0-1); LYMPHOCYTES ABSOLUTE AUTO 0.93 K/mm3 (0.84-5.20); LYMPHOCYTES PERCENT AUTO 11 % (21-46); MONOCYTES ABSOLUTE AUTO 0.97 K/mm3 (0.16-1.47); MONOCYTES PERCENT AUTO 12 % (4-13); Mean Corpuscular HGB Conc 31.4 g/dL (31.5-36.5); Mean Corpuscular Volume 86 fL (80-100); Mean Platelet Volume 10.3 fL (9.1-12.4); NEUTROPHILS ABSOLUTE AUTO 5.89 K/mm3 (1.96-9.15); NEUTROPHILS PERCENT AUTO 71 % (41-73); Platelet Count 201 K/mm3 (150-400); RDW Coefficient Variation 17.1 % (11.7-14.2); Red Blood Cell Count 3.74 M/mm3 (4.30-5.90); White Blood Cell Count 8.32 K/mm3 (4.00-11.30)
[2019-02-25 14:49] LABS: Albumin, Blood 3.1 g/dL (3.4-5.0); Albumin/Globulin Ratio 0.7 (0.8-1.8); Bilirubin, Total 0.5 mg/dL (0.1-1.0); Bun/Creatinine Ratio 4.7 (12.0-20.0); Creatinine, Blood 3.41 mg/dL (0.60-1.20); Globulin, Blood 4.7 g/dL (2.2-4.0); Potassium, Blood 3.2 mmol/L (3.5-5.5); Total Protein, Blood 7.8 g/dL (6.4-8.2)
== END 2019-02-25 18:20 | disposition home or self-care (01) ==
LOC: ER 12:57
PROVIDERS: Emergency Medicine
DX: I10 Essential (primary) hypertension (principal); Z88.2 Allergy status to sulfonamides; Z91.030 Bee allergy status; Z88.5 Allergy status to narcotic agent; Z79.82 Long term (current) use of aspirin; Z79.899 Other long term (current) drug therapy; I25.10 Atherosclerotic heart disease of native coronary artery without angina pectoris; E11.9 Type 2 diabetes mellitus without complications; Z87.442 Personal history of urinary calculi; G47.33 Obstructive sleep apnea (adult) (pediatric); Z87.891 Personal history of nicotine dependence; Z99.2 Dependence on renal dialysis
CPT/HCPCS: 80053; 82947; 85025; 93005; 93010; 99284-25

== ENCOUNTER → 2021-09-06 | Outpatient (CLI) | payer OTHER ==
[~2021-09-06] MED LIST changes: +LOSA50; +Norco 5-325 Ta1 EACH PO
[2021-09-06 10:07] LABS: Albumin, Blood 3.6 g/dL (3.4-5.0); Albumin/Globulin Ratio 0.8 (0.8-1.8); Bilirubin, Direct 0.1 mg/dL (0.0-0.3); Bilirubin, Indirect 0.3 mg/dL (0.1-0.7); Bilirubin, Total 0.4 mg/dL (0.1-1.0); Globulin, Blood 4.7 g/dL (2.2-4.0); Total Protein, Blood 8.3 g/dL (6.4-8.2)
== END | disposition home or self-care (01) ==
LOC: LAB DAV 08:42
PROVIDERS: Internal Medicine Nephrology
DX: R11.0 Nausea (principal); R17 Unspecified jaundice
CPT/HCPCS: 80076

== ENCOUNTER 2021-11-06 06:46 | Inpatient (IN) | payer OTHER ==
[~2021-11-06] VITALS: Ht 177.8 cm; Wt 84.3 kg
[2021-11-06 07:05] LABS: Calcium, Ionized (POC) 1.06 mmol/L (1.10-1.46); Chloride (POC) 99 mmol/L (98-108); Creatinine (POC) 9.9 mg/dL (0.8-1.3); Glucose (ISTAT POC) 283 mg/dL (70-99); Potassium (POC) 4.9 mmol/L (3.5-5.5); Sodium (POC) 135 mmol/L (135-148); Total CO2 (POC) 25 mmol/L (21-32)
[2021-11-06 07:20] LABS: BASOPHILS ABSOLUTE AUTO 0.28 K/mm3 (0.00-0.23); BASOPHILS PERCENT AUTO 1 % (0-2); EOSINOPHILS ABSOLUTE AUTO 0.96 K/mm3 (0.00-0.68); EOSINOPHILS PERCENT AUTO 4 % (0-6); Hemoglobin 13.1 g/dL (13.5-17.5); IMMATURE GRAN ABSOLUTE AUTO 0.32 K/mm3 (0.00-0.10); IMMATURE GRAN PERCENT AUTO 1 % (0-1); LYMPHOCYTES PERCENT AUTO 31 % (21-46); MONOCYTES ABSOLUTE AUTO 2.51 K/mm3 (0.16-1.47); MONOCYTES PERCENT AUTO 11 % (4-13); Mean Corpuscular HGB 29.9 pg (26.0-34.0); Mean Corpuscular HGB Conc 30.5 g/dL (31.5-36.5); Mean Corpuscular Volume 98 fL (80-100); Mean Platelet Volume 10.3 fL (9.1-12.4); NEUTROPHILS ABSOLUTE AUTO 12.31 K/mm3 (1.96-9.15); NEUTROPHILS PERCENT AUTO 52 % (41-73); Platelet Count 360 K/mm3 (150-400); RDW Coefficient Variation 15.4 % (11.7-14.2); RDW Standard Deviation 56.1 fL (35.1-46.3); Red Blood Cell Count 4.38 M/mm3 (4.30-5.90); White Blood Cell Count 23.58 K/mm3 (4.00-11.30)
[2021-11-06 07:41] LABS: PCO2 Arterial 71.5 mmHg (35-45); PO2 Arterial 91.7 mmHg (80-100); pH Blood Arterial 7.16 (7.35-7.45)
[2021-11-06 07:50] LABS: Alanine Aminotransfer (ALT/SGP 31 U/L (12-78); Albumin, Blood 3.6 g/dL (3.4-5.0); Albumin/Globulin Ratio 0.8 (0.8-1.8); Alk Phos 162 U/L (50-136); Anion Gap 13 mmol/L (6-16); Aspartate Aminotrans (AST/SGOT 32 U/L (12-37); Bilirubin, Total 0.5 mg/dL (0.1-1.0); Blood Urea Nitrogen 71 mg/dL (8-24); Bun/Creatinine Ratio 6.9 (12.0-20.0); CO2, Blood 25 mmol/L (21-32); Calcium, Blood 8.8 mg/dL (8.5-10.1); Chloride, Blood 96 mmol/L (98-108); Globulin, Blood 4.8 g/dL (2.2-4.0); Glomerular Filtration Rate 5 (60-); Glucose, Blood 293 mg/dL (70-99); Potassium, Blood 4.8 mmol/L (3.5-5.5); Sodium, Blood 134 mmol/L (136-145); Total Protein, Blood 8.4 g/dL (6.4-8.2)
[2021-11-06 08:58] LABS: U Amphetamine Screen Not Detected; U Barbituate Screen Not Detected; U Benzodiazapine Screen Not Detected; U Cocaine Screen Not Detected; U Methadone Screen Not Detected; U Methamphetamine Screen Not Detected; U Opiates Screen DETECTED; U Phencyclidine Screen Not Detected
[2021-11-06 08:59] LABS: U Buprenorphine Screen Not Detected; U Cannabinoids Screen Not Detected; U Oxycodone Screen Not Detected; U Propoxyphene Screen Not Detected
[2021-11-06 09:41] LABS: SARS-Cov-2 (COVID-19) PCR, MMC NEGATIVE (NEGATIVE)
--- NOTE | 2021-11-06 10:17 | NUR ---
Case Conference Note Reviewed chart and discussed case with Dr Ponce. Pt's code status is full code. Pt has POLST on file with wishes for DNR. Dr Ponce reports Pt and family would benefit from discussion regarding wishes at a later time. Palliative Care will remain available.
[2021-11-06 11:38] LABS: Base Excess Venous 2.8 mmol/L; Bicarbonate Venous 24.3 mmol/L (24.0-30.0); PCO2 Venous 68 mmHg (38-42); PO2 Venous 36.3 mmHg (38-42); pH Blood Venous 7.25 (7.34-7.37)
[2021-11-06 13:25] LABS: Source, Urine Foley catheter
[2021-11-06 13:34] LABS: Appearance, Urine Clear (Clear); Bilirubin, Urine Neg (Neg); Blood, Urine 3+ (Neg); Color, Urine Yellow (P-Yellow); Glucose Qualitative, Urine 3+ (Neg); Ketones, Urine Neg (Neg); Leukocyte Esterase, Urine Neg (Neg); Nitrite, Urine Neg (Neg); Protein, Urine 3+ (Neg); Specific Gravity, Urine 1.015 (1.003-1.022); Urobilinogen, Urine NORM (Normal)
[2021-11-06 14:09] LABS: Squamous Epithelial Cells Rare /hpf (Few); White Blood Cells, Urine 0-2 /hpf (0-5)
[2021-11-06 14:10] LABS: Bacteria Rare /hpf
--- NOTE | 2021-11-06 14:36 | NUR ---
PT TO ICU ROOM 8 @930 FROM ED. PT ARRIVED INTUBATED AND SEDATED. HYPERTENSIVE ON ARRIVAL WITH SBP 179, BP LABILE REQUIRING PRESSOR SUPPORT. LEVOPHED STARTED AT 5 MCG/MIN TO MAINTAIN MAP>65. PROPOFOL @ 25 MCG/KG/MIN, . VENT SETTINGS AC 20/450/10/90% WITH SATS>90%. OGT CLAMPED. BILATERAL PEDAL PULSES BY DOPPLER, BILATERAL RADIAL PULSE WEAK. PT OCCASIONALLY HALEY WITH HR 53, EKG PERFORMED AND ON CHART. TEMP MORELAND IN PLACE, MORELAND TEMP LIKELY NOT ACCURATE D/T OLIGURIA. GREGG FISTULA, LFA OLD FISTULA. PT'S FAMILY AT BEDSIDE. SEE FULL ADMISSION ASSESSMENT.
--- NOTE | 2021-11-06 18:18 | NUR ---
SHIFT SUMMARY PT REMAINS INTUBATED AND SEDATED, PROPOFOL @ 35 MCG/KG/MIN. VENT SETTING AC 20/450/10/30%. 2L OFF DURING DIALYSIS. LEVOPHED INFUSING @10 MCG/MIN TO MAINTAIN MAP>65. BLOOD PRESSURE AND HR LABILE T/O SHIFT. 10 ML NAVEED URINARY OUTPUT. CURRENT TEMP 99.0. PLAN TO EXTUBATE IN THE MORNING. PT'S S/O AT BEDSIDE. WILL REPORT TO ONCOMING NURSE.
--- NOTE | 2021-11-06 18:37 | NUR ---
DR. ALBA AT BEDSIDE. PLAN FOR DIALYSIS IN AM PRIOR TO EXTUBATION. PT'S FAMILY AT BEDSIDE, DENY QUESTIONS OR CONCERNS.
[2021-11-07 03:33] LABS: BASOPHILS ABSOLUTE AUTO 0.06 K/mm3 (0.00-0.23); BASOPHILS PERCENT AUTO 0 % (0-2); EOSINOPHILS ABSOLUTE AUTO 0.06 K/mm3 (0.00-0.68); EOSINOPHILS PERCENT AUTO 0 % (0-6); Hematocrit 33.5 % (37.0-53.0); Hemoglobin 11.5 g/dL (13.5-17.5); IMMATURE GRAN ABSOLUTE AUTO 0.08 K/mm3 (0.00-0.10); IMMATURE GRAN PERCENT AUTO 1 % (0-1); LYMPHOCYTES ABSOLUTE AUTO 1.37 K/mm3 (0.84-5.20); LYMPHOCYTES PERCENT AUTO 9 % (21-46); MONOCYTES ABSOLUTE AUTO 1.22 K/mm3 (0.16-1.47); MONOCYTES PERCENT AUTO 8 % (4-13); Mean Corpuscular HGB 31.6 pg (26.0-34.0); Mean Corpuscular HGB Conc 34.3 g/dL (31.5-36.5); Mean Platelet Volume 10.8 fL (9.1-12.4); NEUTROPHILS ABSOLUTE AUTO 12.96 K/mm3 (1.96-9.15); NEUTROPHILS PERCENT AUTO 82 % (41-73); Platelet Count 208 K/mm3 (150-400); RDW Coefficient Variation 15.9 % (11.7-14.2); RDW Standard Deviation 54.3 fL (35.1-46.3); Red Blood Cell Count 3.64 M/mm3 (4.30-5.90); White Blood Cell Count 15.75 K/mm3 (4.00-11.30)
[2021-11-07 03:34] LABS: Mean Corpuscular Volume 92 fL (80-100)
[2021-11-07 04:03] LABS: Magnesium, Blood 2.1 mg/dL (1.6-2.4); Thyroid Stimulating Hormone 0.321 uIU/mL (0.360-4.800)
[2021-11-07 05:15] LABS: Albumin, Blood 2.9 g/dL (3.4-5.0); Albumin/Globulin Ratio 0.7 (0.8-1.8); Bilirubin, Total 0.8 mg/dL (0.1-1.0); Bun/Creatinine Ratio 5.3 (12.0-20.0); Calcium, Blood 7.8 mg/dL (8.5-10.1); Creatinine, Blood 8.51 mg/dL (0.60-1.20); Globulin, Blood 4.1 g/dL (2.2-4.0); Phosphorus, Blood 2.2 mg/dL (2.5-4.9); Potassium, Blood 5.4 mmol/L (3.5-5.5)
--- NOTE | 2021-11-07 06:49 | NUR ---
SHIFT SUMMERY PT IS INTUBATED AC 20/450/5/30%-PEEP DECREASED BY DR WOLF EARLY IN THE SHIFT AND PT HAS TOLERATED WELL. OXYGEN SAT 97%. LEVOPHED IS AT 2MGS, DOWN FROM 12MCGS AT THE BEGINING OF THE SHIFT. DR ALBA HAS ALREADY BEEN BY TO SEE THE PATIENT. PT WILL HAVE DIALYSIS TODAY. PROPOFOL IS AT 45MGS. NO URINE OUTPUT, MD AWARE. NO ACUTE DISTRESS OVERNIGHT.
--- NOTE | 2021-11-07 15:25 | NUR ---
PT WAS PLACED ON SBT AT 1425. TOLERATED WELL, FOLLOWING COMMANDS AND REMAINING CALM. PT WAS EXTUBATED AT [address] WOLF. ON 4L NC. AT BEDSIDE. NO SIGN OF DISTRESS.
--- NOTE | 2021-11-07 18:51 | NUR ---
SUMMARY PT EXTUBATED THIS AFTERNOON. PT IS A/O TO PERSON, PLACE, AND EVENT. CONVERSING WELL. STRONG COUGH WITH [place] SPUTUM. PT IS HAVING A DIFFICULT TIME GETTING COMFORTABLE. C/O PAIN IN HIPS AND BUTTOCKS. CONSTANTLY REPOSITIONING IN BED AND ABLE TO MOVE SELF IN BED. TRIED VIBRATION AND ROTATION ON THE BED. TRIED FLOATING HIPS. DR. WOLF ORDERED 12.5-25MCG OF FENTANYL. LEVOPHED HAS BEEN ON AND OFF ALL DAY SEE FLOWSHEET. DIALYSIS TODAY. ON 4L NC. NO SIGN OF DISTRESS.
--- NOTE | 2021-11-07 19:15 | NUR ---
ASSUMPTION OF CARE PT RESTING IN BED, AT BEDSIDE. HE IS ALERT AND ORIENTED. HE IS ON 4L NC WITH SPO2 >95%. C/O HIP AND BACK PAIN. REPOSITIONED FOR COMFORT. BEDSIDE SWALLOW COMPLETED. PT TOLERATED VERY WELL. CALL PLACED TO HOSPITALIST FOR ORAL PAIN MEDICATION. MORELAND IN PLACE WITH SMALL AMOUNT OF NAVEED URINE IN TUBING. SEE SHIFT ASSESSMENT.
[2021-11-08 04:31] LABS: BASOPHILS ABSOLUTE AUTO 0.04 K/mm3 (0.00-0.23); BASOPHILS PERCENT AUTO 0 % (0-2); EOSINOPHILS PERCENT AUTO 2 % (0-6); Hematocrit 33.6 % (37.0-53.0); Hemoglobin 10.7 g/dL (13.5-17.5); IMMATURE GRAN ABSOLUTE AUTO 0.06 K/mm3 (0.00-0.10); IMMATURE GRAN PERCENT AUTO 1 % (0-1); LYMPHOCYTES ABSOLUTE AUTO 0.98 K/mm3 (0.84-5.20); LYMPHOCYTES PERCENT AUTO 9 % (21-46); MONOCYTES ABSOLUTE AUTO 1.03 K/mm3 (0.16-1.47); MONOCYTES PERCENT AUTO 10 % (4-13); Mean Corpuscular HGB 29.8 pg (26.0-34.0); Mean Corpuscular HGB Conc 31.8 g/dL (31.5-36.5); Mean Corpuscular Volume 94 fL (80-100); Mean Platelet Volume 10.9 fL (9.1-12.4); NEUTROPHILS ABSOLUTE AUTO 8.51 K/mm3 (1.96-9.15); NEUTROPHILS PERCENT AUTO 79 % (41-73); Platelet Count 161 K/mm3 (150-400); RDW Coefficient Variation 15.7 % (11.7-14.2); RDW Standard Deviation 54.2 fL (35.1-46.3); Red Blood Cell Count 3.59 M/mm3 (4.30-5.90); White Blood Cell Count 10.82 K/mm3 (4.00-11.30)
[2021-11-08 05:07] LABS: Magnesium, Blood 2.7 mg/dL (1.6-2.4)
--- NOTE | 2021-11-08 05:44 | NUR ---
SHIFT SUMMARY PT HAS SLEPT ON AND OFF THROUGHOUT NIGHT. HE IS ON 3L NC WITH SPO2 >94%. C/O 10/10 HIP AND BACK PAIN ALL NIGHT DESPITE REPOSITIONING, UNINTERRUPTED REST AND MEDICATION. HE ASSISTS WITH TURNS, USES CALL LIGHT APPROPRIATELY. HE HAS VERY MINIMAL URINE OUTPUT. VS HAVE REMAINED STABLE THROUGHOUT SHIFT. WILL REPORT TO ONCOMING RN.
[2021-11-08 05:46] LABS: Albumin, Blood 3.1 g/dL (3.4-5.0); Anion Gap 9 mmol/L (6-16); Blood Urea Nitrogen 49 mg/dL (8-24); CO2, Blood 33 mmol/L (21-32); Calcium, Blood 8.8 mg/dL (8.5-10.1); Chloride, Blood 95 mmol/L (98-108); Creatinine, Blood 8.22 mg/dL (0.60-1.20); Glomerular Filtration Rate 6 (60-); Glucose, Blood 132 mg/dL (70-99); Potassium, Blood 4.7 mmol/L (3.5-5.5); Sodium, Blood 137 mmol/L (136-145)
[2021-11-08 05:47] LABS: Phosphorus, Blood 6.3 mg/dL (2.5-4.9)
--- NOTE | 2021-11-08 09:28 | NUR ---
Case Conference Note Attempted to see Pt. Therapy currently working with Pt. Reviewed chart and discussed case with Primary RN Lucia. Pt extubated yesterday and is improving. Pt to likely to be placed as medical floor status. Palliative Care will remain available.
--- NOTE | 2021-11-08 12:10 | NUR ---
PT IS A/O X4 TODAY. GOT UP TO RECLINER CHAIR WITH PHYSICAL THERAPY TODAY. WEAK LOWER EXTREMITIES BUT IMPROVING. TAKING PILLS WITHOUT ISSUE WITH WATER. PT DOWNGRADED TO MEDICAL STATUS TODAY. TRANSFERED TO MEDICAL FLOOR [id number], ACCOMPANIES PT. NO SIGN DISTRESS.
--- NOTE | 2021-11-08 16:56 | NUR ---
END OF SHIFT SUMMARY Pt transferred from ICU at 1210. Pt AOx4, vitals stable. Pt reporting pain, requesting hydrocodone PRN. Pts requesting Phoslo gel caps, renal clinic instructed that pills should be given 2 caps with each meal, give 3 caps if eating a large meal, and give 1 cap with each snack. Pt resting in bed comfortably. Tele called and reported 5 beats of VTACH, pt asymptomatic. VSS, CBG WNL, no SSI needed.
[2021-11-09 05:17] LABS: BASOPHILS ABSOLUTE AUTO 0.04 K/mm3 (0.00-0.23); BASOPHILS PERCENT AUTO 1 % (0-2); EOSINOPHILS ABSOLUTE AUTO 0.38 K/mm3 (0.00-0.68); EOSINOPHILS PERCENT AUTO 5 % (0-6); Hematocrit 31.8 % (37.0-53.0); Hemoglobin 9.9 g/dL (13.5-17.5); IMMATURE GRAN ABSOLUTE AUTO 0.07 K/mm3 (0.00-0.10); IMMATURE GRAN PERCENT AUTO 1 % (0-1); LYMPHOCYTES ABSOLUTE AUTO 1.12 K/mm3 (0.84-5.20); LYMPHOCYTES PERCENT AUTO 13 % (21-46); MONOCYTES ABSOLUTE AUTO 0.87 K/mm3 (0.16-1.47); MONOCYTES PERCENT AUTO 10 % (4-13); Mean Corpuscular HGB 29.4 pg (26.0-34.0); Mean Corpuscular HGB Conc 31.1 g/dL (31.5-36.5); Mean Corpuscular Volume 94 fL (80-100); Mean Platelet Volume 11.1 fL (9.1-12.4); NEUTROPHILS ABSOLUTE AUTO 5.98 K/mm3 (1.96-9.15); NEUTROPHILS PERCENT AUTO 71 % (41-73); Platelet Count 170 K/mm3 (150-400); RDW Coefficient Variation 15.4 % (11.7-14.2); RDW Standard Deviation 53.3 fL (35.1-46.3); Red Blood Cell Count 3.37 M/mm3 (4.30-5.90); White Blood Cell Count 8.46 K/mm3 (4.00-11.30)
[2021-11-09 06:04] LABS: Magnesium, Blood 2.8 mg/dL (1.6-2.4)
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
[2021-11-09 06:35] LABS: Albumin, Blood 2.7 g/dL (3.4-5.0); Anion Gap 12 mmol/L (6-16); Blood Urea Nitrogen 76 mg/dL (8-24); Bun/Creatinine Ratio 7.2 (12.0-20.0); CO2, Blood 31 mmol/L (21-32); Calcium, Blood 8.7 mg/dL (8.5-10.1); Chloride, Blood 92 mmol/L (98-108); Glomerular Filtration Rate 5 (60-); Glucose, Blood 138 mg/dL (70-99); Phosphorus, Blood 7.1 mg/dL (2.5-4.9); Sodium, Blood 135 mmol/L (136-145)
--- NOTE | 2021-11-09 09:15 | NUR ---
Pt sitting on edge of bed upon arrival just finishing his breakfast. Pt is A&OX4 and reports 10/10 pain in his lower back. Pt reports having chronic lower back pain for approximately 4 years. He reports current regimen is not beneficial. Engaged in therapeutic conversation regarding code status and POLST. Pt's SO Jolene arrives. Discussed the importance of considering completing new POLST that aligns with his current wishes. Educated on life sustaining treatments including risk factors and implications of CPR. Pt reports ok with intubation but is unsure of CPR. Educated on POLST and advanced directive. Educated on each section to complete. Jolene reports plan to assist with completion. Pt reports thinking he may have completed an advanced directive at the [facility]. Offered therapeutic listening and answered questions. Faxed request to [facility] for advanced directive Palliative Care will remain available
--- NOTE | 2021-11-09 14:51 | NUR ---
Received call from staff reporting Pt and SO is requesting PC visit. Pt sitting in chair upon arrival. Pt's SO Jolene at bedside. Pt has completed POLST with wishes for DNR and Full Treatment. Pt confirms wishes and understanding. Pt states he does not want CPR but is ok with intubation. Pt has also completed AD and is requesting witness signatures. This RN signed as a witness and after discussion with Property Custodian Zachary he will come up and sign as witness. Spoke with Dr Petit and discussed case. MD will sign POLST when she makes her rounds. Changed Pt's code status to Limited Code per V/O from Dr Petit. Palliative Care will obtain copies of POLST and AD for medical records upon signature.
--- NOTE | 2021-11-09 17:30 | NUR ---
END OF SHIFT SUMMARY Pt doing well this shift, went to dialysis this morning. BP have been high/soft pressures, no cardiac s/sx noted. Dialysis nurse concerned about low pressures, and asked for home med/midodrine. Pt given one dose in dialysis, when pt came back to the medical floor, midodrine scheduled afternoon/evening, pts wanted midodrine held, she stated she gives pt water to drink, and lay him down to "naturally elevate BP". CBG WNL, no SSI given. Vitals stable, low HR, metoprolol held this am, MD aware. No other concerns at this time.
--- NOTE | 2021-11-10 05:33 | NUR ---
SHIFT SUMMARY: PATIENT SLEPT DURING THE EVENING, TIRED FROM DIALYSIS. REPORTED LEFT SHOULDER AND HIP PAIN, PRN PERCOCET WAS GIVEN WITH GOOD EFFECT. PATIENT WOKE AT 0430 AND SAT IN THE CHAIR WHICH ALSO HELPED THE PAIN. COMPLIANT WITH CPAP. NO ALRAMS FOR BRADYCARDIA ON THE CONT. PULSE OX.
[2021-11-10 07:10] LABS: BASOPHILS ABSOLUTE AUTO 0.03 K/mm3 (0.00-0.23); BASOPHILS PERCENT AUTO 0 % (0-2); EOSINOPHILS ABSOLUTE AUTO 0.34 K/mm3 (0.00-0.68); EOSINOPHILS PERCENT AUTO 5 % (0-6); Hematocrit 33.6 % (37.0-53.0); Hemoglobin 10.3 g/dL (13.5-17.5); IMMATURE GRAN ABSOLUTE AUTO 0.05 K/mm3 (0.00-0.10); IMMATURE GRAN PERCENT AUTO 1 % (0-1); LYMPHOCYTES ABSOLUTE AUTO 1.13 K/mm3 (0.84-5.20); LYMPHOCYTES PERCENT AUTO 16 % (21-46); MONOCYTES ABSOLUTE AUTO 0.86 K/mm3 (0.16-1.47); MONOCYTES PERCENT AUTO 12 % (4-13); Mean Corpuscular HGB 29.2 pg (26.0-34.0); Mean Corpuscular HGB Conc 30.7 g/dL (31.5-36.5); Mean Corpuscular Volume 95 fL (80-100); NEUTROPHILS PERCENT AUTO 66 % (41-73); Platelet Count 179 K/mm3 (150-400); RDW Coefficient Variation 15.4 % (11.7-14.2); RDW Standard Deviation 53.2 fL (35.1-46.3); Red Blood Cell Count 3.53 M/mm3 (4.30-5.90); White Blood Cell Count 7.01 K/mm3 (4.00-11.30)
[2021-11-10 07:27] LABS: Albumin, Blood 2.7 g/dL (3.4-5.0); Anion Gap 11 mmol/L (6-16); Blood Urea Nitrogen 62 mg/dL (8-24); Bun/Creatinine Ratio 8.2 (12.0-20.0); CO2, Blood 31 mmol/L (21-32); Calcium, Blood 8.8 mg/dL (8.5-10.1); Chloride, Blood 95 mmol/L (98-108); Creatinine, Blood 7.56 mg/dL (0.60-1.20); Glomerular Filtration Rate 7 (60-); Glucose, Blood 97 mg/dL (70-99); Magnesium, Blood 2.7 mg/dL (1.6-2.4); Phosphorus, Blood 5.3 mg/dL (2.5-4.9); Potassium, Blood 4.9 mmol/L (3.5-5.5); Sodium, Blood 137 mmol/L (136-145)
[2021-11-10] MEDS ORDERED: Norco 5-325 Ta1 EACH PO (12:02)
--- NOTE | 2021-11-10 12:40 | NUR ---
Med changes concerned about incorrect dosings and frequencies on below meds. Dosing on calcium acetate changed to reflect home dose of 2031 mg TIDM. Midodrine changed to PRN and with parameter to give if SBP below 90. Both orders ok'd and received from Dr. Zheng via T.O.
--- NOTE | 2021-11-10 15:43 | NUR ---
Mid shift summary A/O, had shower today. C/O pain to R hip. Meds changed per 's request and T.O. from Dr. Zheng (see previous note). New med list received from and given to oncoming RN to reconcile in med rec. Home O2 eval completed, patient will need 1L O2, but refusing recommended oxygen. Dr. Hudson and Dr. Zheng notified of refusal. Currently on 1L O2 NC to maintain sats >90%. With CPAP, patient requiring 2.5L bleed in to maintain sats > 90%. Tele: SB 50's. CBG's WNL, no coverage indicated. 1p FWW and gait belt. Appetite is good. Patient has not had a bm since 11/06, this was passed onto receiving RN, fibre optics jointer Anita notified.
--- NOTE | 2021-11-10 17:41 | NUR ---
This RN was a witness for pt's Advance Directive. Copy made for medical record, grant left with .
--- NOTE | 2021-11-10 17:55 | NUR ---
DAYSHIFT SUMMARY Assumed pt care at 1445. Pt doing well, resting comfortably in bed, at bedisde. requested stool softner for pt, no BM in 4 days. MD ordered colace PRN daily. Pt requested pain medicine, for chronic body pain. Mepilex placed on coccyx, CDI. Tele on, Sinus Rhythm. Vitals stable, CBG WNL, no SSI given.
[2021-11-11 05:43] LABS: Hematocrit 28.8 % (37.0-53.0)
[2021-11-11 06:12] LABS: Magnesium, Blood 2.7 mg/dL (1.6-2.4)
[2021-11-11 06:20] LABS: Albumin, Blood 2.5 g/dL (3.4-5.0); Anion Gap 11 mmol/L (6-16); Blood Urea Nitrogen 91 mg/dL (8-24); CO2, Blood 28 mmol/L (21-32); Chloride, Blood 96 mmol/L (98-108); Glomerular Filtration Rate 5 (60-); Glucose, Blood 101 mg/dL (70-99); Phosphorus, Blood 6.1 mg/dL (2.5-4.9); Potassium, Blood 5.2 mmol/L (3.5-5.5); Sodium, Blood 135 mmol/L (136-145)
--- NOTE | 2021-11-11 08:25 | NUR ---
SHIFT SUMMARY: PATIENT IS CONSTIPATED, DR AGARWAL WAS NOTIED AND BOWEL CARE MEDS WERE ORDERED. MOM WAS GIVEN, AWAITING RESULTS. RESPIRATORY STATUS IS IMPROVING. WEANED DOWN TO 1L NC WHILE AWAKE AND CPAP FOR SLEEP WITH NO BLEED IN. WHILE AWAKE AND WATCHING TV THE PATIENT THE PATIENT WAS ON RA, MAINTAINING SATS 90-95%.
--- NOTE | 2021-11-11 13:15 | NUR ---
DISCHARGE NOTE PT DISCHARGING TO HOME TODAY WITH (CAREGIVER). PT AxOx4. PLEASANT AND COOPERATIVE WITH CARE. PT HAD HEMODIALYSIS TODAY IN HIS ROOM. AT BEDSIDE. PT AND GIVEN DC INSTRUCTIONS INCLUDING DC MEDICATIONS, FOLLOW UP APPOINTMENTS, AND PATIENT EDUCATION. PT AND VERBALIZE UNDERSTANDING. DENIES ANY FURTHER QUESTIONS. VITALS MONITORED POST DIALYSIS, DETERMINED STABLE FOR DISCHARGE. PT MEDICATED x1 FOR PAIN. PT CONTINUES TO DECLINE HOME O2. PT SAFELY ESCORTED OUT VIA WC WITH NURSE.
== END 2021-11-11 13:07 | disposition home or self-care (01) | DRG 208 ==
LOC: ER 06:46 → MEDS 08:05 → ICUE 08:05 → ICUW 08:05 → ICUE 09:21 → MEDS 11-08 12:42
PROVIDERS: Emergency Medicine; Internal Medicine Critical Care Medicine; Internal Medicine Nephrology; Nurse Practitioner Acute Care; Student in an Organized Health Care Education/Training Program; ADMIT Internal Medicine
PROC: 5A1945Z Respiratory Ventilation, 24-96 Consecutive Hours (ICD-10-PCS; principal; 2021-11-06)
PROC: 0BH17EZ Insertion of Endotracheal Airway into Trachea, Via Natural or Artificial Opening (ICD-10-PCS; 2021-11-06)
PROC: 3E033XZ Introduction of Vasopressor into Peripheral Vein, Percutaneous Approach (ICD-10-PCS; 2021-11-06)
PROC: 05HY33Z Insertion of Infusion Device into Upper Vein, Percutaneous Approach (ICD-10-PCS; 2021-11-06)
PROC: 5A1D70Z Performance of Urinary Filtration, Intermittent, Less than 6 Hours Per Day (ICD-10-PCS; 2021-11-06)
PROC: 5A09357 Assistance with Respiratory Ventilation, Less than 24 Consecutive Hours, Continuous Positive Airway Pressure (ICD-10-PCS; 2021-11-09)
DX: J96.01 Acute respiratory failure with hypoxia (principal); N18.6 End stage renal disease; J18.9 Pneumonia, unspecified organism; I50.21 Acute systolic (congestive) heart failure; I13.2 Hypertensive heart and chronic kidney disease with heart failure and with stage 5 chronic kidney disease, or end stage renal disease; N17.9 Acute kidney failure, unspecified; F11.20 Opioid dependence, uncomplicated; E87.1 Hypo-osmolality and hyponatremia; Z66 Do not resuscitate; Z20.822 Contact with and (suspected) exposure to COVID-19; D63.1 Anemia in chronic kidney disease; D72.829 Elevated white blood cell count, unspecified; E78.5 Hyperlipidemia, unspecified; I25.10 Atherosclerotic heart disease of native coronary artery without angina pectoris; E88.09 Other disorders of plasma-protein metabolism, not elsewhere classified; K21.9 Gastro-esophageal reflux disease without esophagitis; F32.A Depression, unspecified; G47.33 Obstructive sleep apnea (adult) (pediatric); E66.01 Morbid (severe) obesity due to excess calories; J44.9 Chronic obstructive pulmonary disease, unspecified; E21.3 Hyperparathyroidism, unspecified; J96.02 Acute respiratory failure with hypercapnia; E87.5 Hyperkalemia; I16.0 Hypertensive urgency; N20.0 Calculus of kidney; G89.29 Other chronic pain; Z68.27 Body mass index [BMI] 27.0-27.9, adult; E11.22 Type 2 diabetes mellitus with diabetic chronic kidney disease; Z86.718 Personal history of other venous thrombosis and embolism; Z85.46 Personal history of malignant neoplasm of prostate; Z99.2 Dependence on renal dialysis; Z90.49 Acquired absence of other specified parts of digestive tract; Z98.890 Other specified postprocedural states; Z79.51 Long term (current) use of inhaled steroids; Z79.82 Long term (current) use of aspirin; Z79.4 Long term (current) use of insulin; Z79.899 Other long term (current) drug therapy; Z88.2 Allergy status to sulfonamides; Z91.030 Bee allergy status; Z88.6 Allergy status to analgesic agent; Z88.8 Allergy status to other drugs, medicaments and biological substances; Z95.5 Presence of coronary angioplasty implant and graft; Z87.891 Personal history of nicotine dependence; Z79.01 Long term (current) use of anticoagulants; Z88.5 Allergy status to narcotic agent
CPT/HCPCS: 31500; 36415; 36569; 36600; 51702; 71045; 80047; 80053; 80069; 81001; 82803; 82947; 83735; 84100; 84145; 84439; 84443; 84484; 85014; 85018; 85025; 93005; 93010; 93306; 94002; 94003; 94640; 94660; 94664; 94760; 94762; 97110; 97116; 97162; 97530; 99291-25; A9270; C1751; C9113; J0456; J0696; J0881; J1644; J1815; J2704; J3010; J7040; J7060; U0004

== ENCOUNTER 2021-11-22 13:35 | Emergency (ER) | payer OTHER ==
[~2021-11-22] VITALS: Ht 170.2 cm; Wt 83.9 kg
[2021-11-22 14:28] LABS: BASOPHILS ABSOLUTE AUTO 0.11 K/mm3 (0.00-0.23); BASOPHILS PERCENT AUTO 1 % (0-2); EOSINOPHILS ABSOLUTE AUTO 0.26 K/mm3 (0.00-0.68); EOSINOPHILS PERCENT AUTO 3 % (0-6); Hematocrit 30.5 % (37.0-53.0); Hemoglobin 9.9 g/dL (13.5-17.5); IMMATURE GRAN ABSOLUTE AUTO 0.04 K/mm3 (0.00-0.10); IMMATURE GRAN PERCENT AUTO 1 % (0-1); LYMPHOCYTES ABSOLUTE AUTO 1.29 K/mm3 (0.84-5.20); LYMPHOCYTES PERCENT AUTO 15 % (21-46); MONOCYTES ABSOLUTE AUTO 0.89 K/mm3 (0.16-1.47); MONOCYTES PERCENT AUTO 10 % (4-13); Mean Corpuscular HGB 30.4 pg (26.0-34.0); Mean Corpuscular HGB Conc 32.5 g/dL (31.5-36.5); Mean Corpuscular Volume 94 fL (80-100); Mean Platelet Volume 9.8 fL (9.1-12.4); NEUTROPHILS PERCENT AUTO 70 % (41-73); Platelet Count 289 K/mm3 (150-400); RDW Coefficient Variation 14.7 % (11.7-14.2); RDW Standard Deviation 50.2 fL (35.1-46.3); Red Blood Cell Count 3.26 M/mm3 (4.30-5.90); White Blood Cell Count 8.79 K/mm3 (4.00-11.30)
[2021-11-22 14:45] LABS: Albumin, Blood 3.2 g/dL (3.4-5.0); Albumin/Globulin Ratio 0.8 (0.8-1.8); Bilirubin, Total 0.3 mg/dL (0.1-1.0); Bun/Creatinine Ratio 4.3 (12.0-20.0); Calcium, Blood 8.6 mg/dL (8.5-10.1); Creatinine, Blood 4.14 mg/dL (0.60-1.20); Globulin, Blood 4.2 g/dL (2.2-4.0); Magnesium, Blood 2.4 mg/dL (1.6-2.4); Potassium, Blood 3.5 mmol/L (3.5-5.5); Total Protein, Blood 7.4 g/dL (6.4-8.2)
[2021-11-22] MEDS ORDERED: CEFD300 PO ×2 (15:58→15:59)
== END 2021-11-22 16:12 | disposition home or self-care (01) ==
LOC: ER 13:35
PROVIDERS: Student in an Organized Health Care Education/Training Program
DX: E86.1 Hypovolemia (principal); I95.9 Hypotension, unspecified; L03.317 Cellulitis of buttock; R35.89 Other polyuria; Z91.030 Bee allergy status; Z88.2 Allergy status to sulfonamides; Z88.8 Allergy status to other drugs, medicaments and biological substances; Z88.5 Allergy status to narcotic agent; Z79.899 Other long term (current) drug therapy; Z79.4 Long term (current) use of insulin; Z79.82 Long term (current) use of aspirin; G47.33 Obstructive sleep apnea (adult) (pediatric); I25.10 Atherosclerotic heart disease of native coronary artery without angina pectoris; N18.6 End stage renal disease; Z99.2 Dependence on renal dialysis; E11.22 Type 2 diabetes mellitus with diabetic chronic kidney disease; E78.5 Hyperlipidemia, unspecified; K21.9 Gastro-esophageal reflux disease without esophagitis; Z87.891 Personal history of nicotine dependence
CPT/HCPCS: 80053; 83735; 85025; 93005; 93010; 96360; 99285-25; J7030

== ENCOUNTER 2021-12-11 02:58 | Emergency (ER) | payer OTHER ==
[~2021-12-11] VITALS: Ht 182.9 cm; Wt 83.9 kg
[~2021-12-11 02:58] MED LIST changes: +CEFD300 PO
== END 2021-12-11 05:59 ==
LOC: ER 02:58
DX: I46.9 Cardiac arrest, cause unspecified (principal); I13.0 Hypertensive heart and chronic kidney disease with heart failure and stage 1 through stage 4 chronic kidney disease, or unspecified chronic kidney disease; I25.10 Atherosclerotic heart disease of native coronary artery without angina pectoris; E11.22 Type 2 diabetes mellitus with diabetic chronic kidney disease; N18.6 End stage renal disease; K21.9 Gastro-esophageal reflux disease without esophagitis; E78.5 Hyperlipidemia, unspecified; Z87.891 Personal history of nicotine dependence; Z88.2 Allergy status to sulfonamides; Z88.5 Allergy status to narcotic agent; Z88.8 Allergy status to other drugs, medicaments and biological substances; Z91.030 Bee allergy status; Z79.4 Long term (current) use of insulin; Z79.899 Other long term (current) drug therapy; Z95.5 Presence of coronary angioplasty implant and graft
CPT/HCPCS: 99284-25